=== PATIENT | female | born 1965 | race Two or more races ===

== ENCOUNTER 2024-10-09 10:05 | Outpatient (REF) | payer OTHER, SELFPAY ==
[2024-10-09 11:07] LABS: Hematocrit 41.7 % (37.0-47.0); Hemoglobin 13.8 g/dl (12.0-16.0); Mean Corpuscular HGB Conc 33.1 g/dl (31.0-35.0); Mean Corpuscular Hemoglobin 26.8 pg (27.0-33.0); Mean Corpuscular Volume 81.1 fL (80.0-98.0); Mean Platelet Volume 10.3 fL (9.4-12.3); Platelet Count 201 X10*3/uL (160-400); Red Blood Count 5.14 X10*6/uL (4.20-5.50); Red Cell Distribution Width 12.8 % (11.0-16.0); White Blood Count 3.1 X10*3/uL (4.8-10.8)
[2024-10-09 12:20] LABS: Folate 8.6 ng/mL (> or = 4.0); Vitamin B12 345 pg/mL (200-900)
[2024-10-09 12:34] LABS: TSH reflex Free T4 0.56 uIU/mL (0.32-4.0)
== END 2024-10-09 10:06 | disposition home or self-care (01) ==
LOC: HO.LAB 10:05
PROVIDERS: PCP Internal Medicine; Visit Provider Registered Nurse
DX: G31.84 Mild cognitive impairment of uncertain or unknown etiology (principal)
CPT/HCPCS: 36415; 82607; 82746; 84443; 85027

== ENCOUNTER 2025-07-17 12:54 | Outpatient (AMB) | payer OTHER, SELFPAY ==
--- NOTE | 2025-07-17 13:02 | MHC.OFFVIS ---
Vital Signs 07/17/25 13:11 Height 5 ft 5 in Weight 180 lb BMI 30.0 BP 152/80 H Blood Pressure Location Lt brachial Position Sitting Respiration 16 Pulse 77 Pulse Source Pulse Oximeter Pulse Oximetry (%) 97 Oxygen Delivery Method Room Air Intake Visit Reasons: Follow Up Selenium Plant Operator Required: Yes Selenium Plant Operator Services: Selenium Plant Operator Present Selenium Plant Operator Name: Anibal ID [id number] Information Interpreted: non-clinical & clinical Allergies morphine Allergy (Unknown, Verified 07/07/25 12:50) Unknown Medication List - Last Reconciled 07/21/25 by Karol Pal CNP acetaminophen 500 mg PO Q6H PRN atorvastatin 40 mg PO DAILY citalopram 20 mg PO DAILY glipizide ER 5 mg PO BID losartan 100 mg PO DAILY metformin 850 mg PO BID pantoprazole 40 mg PO DAILY propranolol 20 mg (2 x 10 mg) PO DAILY 30 days riboflavin (vitamin B2) 400 mg PO DAILY 90 days HPI Comments Details: Milagros is a 60-year-old female patient with a past medical history of depression, diabetes, GERD, hyperlipidemia, and headache. She was last seen in November of [address] Aguilera. Notes reflect that she has been improving at the time of her last visit. She was continued on propranolol 10 mg once daily for headaches/migraine prevention during that visit. According to the patient today, she has been taking propranolol 10mg daily for her headaches and has been utilizing tylenol for acute therapy though she has found that she has been Tylenol daily but she also uses it for back pain as well. Currently she is experiencing daily headaches. Her pain is right sided to the temporal retroorbital, and occipital areas and described as a strong pain associated with blurring vision to the right eye. She also has nausea and light sensitivity. She denies warning signs for a severe headache. She feels that the propranolol has helped some since starting it even though she has continue to have pain. Meds tried for headaches: Citaloprim Propranalol Gabapentin Topiramate Prior workup: Routine EEG at off in Oct 2024: [place] (per last office note) CT brain WO at [facility] in 2020: [place] (per last office note) MRI brain WWO at [facility] in February 2021: L lateral ventricle area lesion, ?demylination, milder on other side 07/2024 labs at [facility]: Sed rate 4 PFSH Medical History (Updated 07/21/25 @ 08:54 by Karol Pal CNP) MCI (mild cognitive impairment) Demyelinating changes in brain Brain lesion Depression with anxiety Diabetes mellitus Hypertension Migraine without aura Review of Systems Const All systems reviewed & are unremarkable except as noted in HPI and below Physical Exam Vital Signs: Last Vital Signs Pulse 77 07/17/25 13:11 Resp 16 07/17/25 13:11 BP 152/80 H 07/17/25 13:11 Pulse Ox 97 07/17/25 13:11 Oxygen Delivery Method Room Air 07/17/25 13:11 BMI result Body Mass Index 30.0 Const General: cooperative, healthy appearing, comfortable and no acute distress Nutritional Appearance: well nourished Orientation/consciousness: patient oriented x3 Limitations: no limitations HEENT Head: Yes normal to inspection and Yes normocephalic Eyes General: appearance normal, both eyes and all related structures Visual Fontaine: normal visual fontaine by confrontation Alignment and Position: alignment normal Periorbital: periorbital findings normal Eyelids: Yes eyelids normal Conjunctivae: conjunctivae normal Sclerae: sclerae normal Neuro General: patient oriented x3 and deep tendon reflexes 2+ bilaterally Cranial nerves: Yes CN's II-XII intact bilaterally and Yes Facial sensation intact/muscles of mastication intact Cognition (Neuro): normal cognition Gait exam (Neuro): Normal gait present Motor exam (neuro): 5/5 motor strength present throughout and no tremor noted Sensory Exam: double simultaneous stimulation for sensation normal Romberg Test: Negative Pupils: Normal pupillary reactivity/response: bilateral Psych Appearance: grossly normal Mental Status: mental status grossly normal Speech and movement: Normal speech and movement present and Clear speech present Affect: normal affect Attitude: cooperative Thought process: Normal thought process present Thought content: Normal thought content present Insight: Good insight present (Psych) Judgement: Good judgement present (Psych) Assessment & Plan Assessment & Plan (1) Migraine without aura: Code(s): G43.009 - Migraine without aura, not intractable, without status migrainosus Category: Medical Qualifiers: Status migrainosus presence: without status migrainosus Intractability: not intractable Qualified Code(s): G43.009 - Migraine without aura, not intractable, without status migrainosus Plan Milagros is a 60-year-old female patient with a past medical history of depression, diabetes, GERD, hyperlipidemia, and headache. While she has seen some improvement with low-dose propranolol, she continues to have daily headaches. She is tolerating the propranolol well and it seems reasonable to 1st utilize this agent at higher doses before moving on to other options. I will increase propranolol from 10 mg to 20 mg nightly and continue magnesium 500 mg daily which she has been using for supplementation. We will add riboflavin to her regimen and if she has no improvement with this, we could trial a once monthly anti CGRP injectable agent. -Increase propranolol from 10mg nightly to 20mg nightly -Continue magnesium 500mg daily -Add riboflavin 400mg daily supplementation -Next steps include trial of once monthly anti-CGRP injectable -Follow-up in 6 weeks Medications: New riboflavin (vitamin B2) 400 mg PO DAILY 90 tabs 3RF 90 days Changed From propranolol 20 mg PO DAILY To propranolol 20 mg (2 x 10 mg) PO DAILY 60 tabs 5RF 30 days Coding Level of Care Code Est Pt Level 4 (29926) Diagnoses Migraine without aura and without status migrainosus, not intractable G43.009 Status migrainosus presence: without status migrainosus Intractability: not intractable
[2025-07-17 13:11] VITALS: BP 152/80; PULSE 77; RESP 16; O2SAT 97
--- OUTSIDE RECORDS SUMMARY | 2025-07-17 14:47 | XMS_ITS | Encounter Summary ---
Author Organization [facility] Address [address] [place] [address] Care Team Providers Care Concierge Name Role Phone Peg Garcia MD Primary Care Provider [phone] Peg Garcia MD Primary Care Provider [phone]- [phone] Reason for Visit * Reason Onset Date Comments refill request 01/06/2021 Encounter Details Date Type Department Care Team Description 01/06/2021 Refill Internal Medicine - [address], [address] [place] [address] Peg Garcia MD [address] [place] [phone] refill request Social History Tobacco Use Types Packs/Day Years Used Date Smoking Tobacco: Former Smokeless Tobacco: Former Alcohol Use Standard Drinks/Week Comments No 0 (1 standard drink = 0.6 oz pur e alcohol) Sex Assigned at Date Recorded Not on file Job Start Date Occupation Industry Not on file Not on file Not on file COVID-19 Exposure Response Date Recorded In the last month, have you been in contact with someone who was confirmed or suspected to have Coronavirus / COVID-19? No / Unsure 12/29/2020 9:39 AM EDT documented as of this encounter Miscellaneous Notes * Telephone Encounter - Tessa Villalta L.P.N. - 01/06/2021 9:24 AM EDT Refill diclofenac Last refill 09/10/2020 #30 2 refills Last ov 12/29/2020 Lab Results Component Value Date NA 140 09/21/2020 K 4.6 09/21/2020 CO2 30 09/21/2020 CL 106 09/21/2020 BUN 15 09/21/2020 CREAT 0.81 09/21/2020 GLU 121 09/21/2020 ALB 4.0 09/21/2020 SGOT 19 09/21/2020 SGPT 35 09/21/2020 TBILI 0.4 09/21/2020 ALKPHOS 66 09/21/2020 TP 7.7 09/21/2020 CA 9.5 09/21/2020 GFR > 60 09/21/2020 * Telephone Encounter - Katlyn Ramos - 01/06/2021 9:07 AM EDT Ana 12/29/20 documented in this encounter Plan of Treatment Not on file documented as of this encounter Visit Diagnoses Not on filedocumented in this encounter Care Teams Concierge Relationship Specialty Start Date End Date Peg Garcia MD PCP - General Internal Medicine 07/01/19 06/20/21 Peg Garcia MD PCP - General Internal Medicine 06/21/21 documented as of this encounter
--- OUTSIDE RECORDS SUMMARY | 2025-07-17 14:47 | XMS_ITS | Encounter Summary ---
Author Organization [facility] Address [address] [place] [address] Care Team Providers Care Home Based Assistant Name Role Phone Peg Garcia MD Primary Care Provider [phone] Encounter Details Date Type Department Care Team ([facility] st Contact Info) Description 07/04/2025 Results Follow-Up Gastroenterology - [place] [address] [facility] [address] [place] [id number] Nesha Petersen PA [address] [place] [address] Social History Tobacco Use Types Packs/Day Years Used Date Smoking Tobacco: Former Smokeless Tobacco: Former Alcohol Use Standard Drinks/Week Comments No 0 (1 standard drink = 0.6 oz pur e alcohol) Interpersonal Safety Answer Date Record ed Physical Abuse Unrecognized value 01/15/2025 Verbal Abuse Unrecognized value 01/15/2025 Comments No Sex and Gender Information Value Date Recorded Sex Assigned at Female 12/02/2024 8:45 AM EDT Legal Sex Female 2:17 AM EST Gender Identity Female 12/02/2024 8:45 AM EDT Sexual Orientation Straight 12/02/2024 8: 45 AM EDT documented as of this encounter Progress Notes * JANETTE Craig - 07/04/2025 4:41 PM EDT Patient is not checking MyChart, please let her know that gastric emptying study showed very mild gastroparesis. Please advise her that she should eat more often, small portions throughout the day, avoid greasy, fatty foods. Eat more light. She can follow-up with me. TY documented in this encounter Plan of Treatment Upcoming Encounters Date Type Department Care Team (Late st Contact Info) Description 08/31/2025 2:30 PM EST Office Visit Internal Medicine - [place] [address] [place] [phone] Peg Garcia MD [address] [place] [address] 02/09/2026 2:00 PM EDT Office Visit Gastroenterology - [address] [facility] [address] [place] [address] Nesha Petersen PA [address] [place] [address] documented as of this encounter Visit Diagnoses Not on filedocumented in this encounter Care Teams Home Based Assistant Relationship Specialty Start Date End Date Peg Garcia MD [address] [place] [address] PCP - General Internal Medicine 07/01/19 documented as of this encounter
--- OUTSIDE RECORDS SUMMARY | 2025-07-17 14:47 | XMS_ITS | Encounter Summary ---
Author Organization [facility] Address [address] [place] [address] Care Team Providers Care Coil Spring Assembler Name Role Phone Rossana Washington MD Primary Care Provider Un available Peg Garcia MD Primary Care Provider [phone] Peg Garcia MD Primary Care Provider [phone] Encounter Details Date Type Department Care Team Description 03/11/2019 [facility] Only Adult [address] [address] Rossana Washington MD Social History Tobacco Use Types Packs/Day Years Used Date Smoking Tobacco: Former Smokeless Tobacco: Former Alcohol Use Standard Drinks/Week Comments No 0 (1 standard drink = 0.6 oz pur e alcohol) Sex Assigned at Date Recorded Not on file Job Start Date Occupation Industry Not on file Not on file Not on file documented as of this encounter Plan of Treatment Not on file documented as of this encounter Visit Diagnoses Not on filedocumented in this encounter Care Teams Coil Spring Assembler Relationship Specialty Start Date End Date Rossana Washington MD PCP - General Internal Medicine 01/24/16 Peg Garcia MD PCP - General Internal Medicine 07/01/19 06/20/21 Peg Garcia MD PCP - General Internal Medicine 06/21/21 documented as of this encounter
--- OUTSIDE RECORDS SUMMARY | 2025-07-17 14:47 | XMS_ITS | Encounter Summary ---
Author Organization [facility] Address [address] [place] [address] Care Team Providers Care Clerical Support Name Role Phone Peg Garcia MD Primary Care Provider [phone] Peg Garcia MD Primary Care Provider [phone] Reason for Visit * Reason Comments E-prescribe Rx Request Encounter Details Date Type Department Care Team Description 07/12/2020 Refill Adult Medicine [address] [address] Peg Garcia MD [address] [place] [phone] E-prescribe Rx Request Social History Tobacco Use Types Packs/Day Years Used Date Smoking Tobacco: Former Smokeless Tobacco: Former Alcohol Use Standard Drinks/Week Comments No 0 (1 standard drink = 0.6 oz pur e alcohol) Sex Assigned at Date Recorded Not on file Job Start Date Occupation Industry Not on file Not on file Not on file documented as of this encounter Miscellaneous Notes * Telephone Encounter - Hattie RingP.N. - 07/12/2020 1:58 PM EDT Lab Results Component Value Date ALB 3.9 05/11/2020 SGOT 17 05/11/2020 SGPT 29 05/11/2020 TBILI 0.6 05/11/2020 ALKPHOS 75 05/11/2020 TP 7.4 05/11/2020 * Telephone Encounter - Heather Beckwith - 07/12/2020 1:56 PM EDT - [id number] Refills - Citalopram - 1 refill Losartan - 5 refills documented in this encounter Plan of Treatment Not on file documented as of this encounter Visit Diagnoses Not on filedocumented in this encounter Care Teams Clerical Support Relationship Specialty Start Date End Date Peg Garcia MD PCP - General Internal Medicine 07/01/19 06/20/21 Peg Garcia MD PCP - General Internal Medicine 06/21/21 documented as of this encounter
--- OUTSIDE RECORDS SUMMARY | 2025-07-17 14:47 | XMS_ITS | Encounter Summary ---
Author Organization [facility] Address [address] [place] [address] Care Team Providers Care Potato Loader Name Role Phone Peg Garcia MD Primary Care Provider [phone] Encounter Details Date Type Department Care Team Description 07/02/2023 Orders Only Medical Records [address] [place] [address] Abstract, Provider Social History Tobacco Use Types Packs/Day Years [...] on file documented as of this encounter Procedures Procedure Name Priority Date/Time Associated Diagnosis Comments OUTSIDE MAMMO Routine 06/30/2023 documented in this encounter Results * OUTSIDE MAMMO (06/30/2023) Provider Abstract RADIOLOGY documented in this encounter Visit Diagnoses Not on filedocumented in this encounter Care Teams Potato Loader Relationship Specialty Start Date End Date Peg Garcia MD PCP - General Internal Medicine 06/21/21 documented as of this encounter
--- OUTSIDE RECORDS SUMMARY | 2025-07-17 14:47 | XMS_ITS | Encounter Summary ---
Author Organization [facility] Address [address] [place] [address] Care Team Providers Care Priming Powder Premix Blender Name Role Phone Peg Garcia MD Primary Care Provider [phone] Peg Garcia MD Primary Care Provider [phone] Reason for Visit * Reason Comments E-prescribe Rx Request Encounter Details Date Type Department Care Team Description 12/10/2020 Refill Adult Medicine [address] [address] Peg Garcia MD [address] [place] [phone] E-prescribe Rx Request Social History Tobacco [...] encounter Miscellaneous Notes * Telephone Encounter - Evgeny Cindy Hood - 12/10/2020 10:42 AM EDT SONIA 11/08/20 No visits with results within 1 Month(s) from this visit. Latest known visit with results is: Orders Only on 09/21/2020 Component Date Value ??? WHITE BLOOD COUNT 09/21/2020 3.4* ??? RED BLOOD COUNT 09/21/2020 5.2* ??? Hemoglobin 09/21/2020 13.9 ??? Hematocrit 09/21/2020 43.0 ??? MEAN CORPUSCULAR VOLUME 09/21/2020 82.9 ??? MEAN CORPUSCULAR HEMOGLO* 09/21/2020 26.8* ??? MEAN CORPUSCULAR HGB CONC 09/21/2020 32.3 ??? RED CELL DISTRIBUTION WI* 09/21/2020 13.4 ??? PLT COUNT 09/21/2020 216 ??? MEAN PLATELET VOLUME 09/21/2020 11.1* ??? NRBC % AUTO 09/21/2020 0.0 ??? NEUTROPHILS % 09/21/2020 42.3 ??? LYMPH % 09/21/2020 45.5 ??? MONO % 09/21/2020 6.8 ??? EOS % 09/21/2020 4.5 ??? BASO % 09/21/2020 0.6 ??? IMMATURE GRANULOCYTES % 09/21/2020 0.3 ??? NRBC # AUTO 09/21/2020 0.00 ??? NEUT # 09/21/2020 1.42* ??? LYMPH # 09/21/2020 1.53 ??? MONO # 09/21/2020 0.23 ??? EOS # 09/21/2020 0.15 ??? BASO # 09/21/2020 0.02 ??? IMMATURE GRANULOCYTES # 09/21/2020 0.01 ??? GLYCATED HEMOGLOBIN A1C 09/21/2020 6.9* ??? ESTIMATED AVERAGE GLUCOSE 09/21/2020 151 ??? Cholesterol 09/21/2020 235* ??? TRIGLYCERIDES 09/21/2020 279* ??? HDL CHOLESTEROL 09/21/2020 46 ??? LDL CALCULATED 09/21/2020 134* ??? TC-HDLC RATIO 09/21/2020 5.1* ??? CREATININE, RANDOM URINE 09/21/2020 103 ??? MICROALBUMIN, RANDOM 09/21/2020 10.1 ??? MICROALB/CRE RATIO RANDOM 09/21/2020 9.8 ??? GLUCOSE 09/21/2020 121* ??? Blood Urea Nitrogen 09/21/2020 15 ??? CREAT 09/21/2020 0.81 GLOMERULAR FILTRATION RA* 09/21/2020 > 60 ??? NA 09/21/2020 140 ??? K 09/21/2020 4.6 ??? CL 09/21/2020 106 ??? CARBON DIOXIDE (CO2) 09/21/2020 30 ??? ANION GAP 09/21/2020 4 ??? CALCIUM 09/21/2020 9.5 ??? TOTAL PROTEIN (TP) 09/21/2020 7.7 ??? Albumin 09/21/2020 4.0 ??? BILIRUBIN TOTAL 09/21/2020 0.4 ??? SGOT 09/21/2020 19 ??? SGPT 09/21/2020 35 ??? ALK PHOS 09/21/2020 66 documented in this encounter Plan of Treatment Not on file documented as of this encounter Visit Diagnoses Not on filedocumented in this encounter Care Teams Priming Powder Premix Blender Relationship Specialty Start Date End Date Peg Garcia MD PCP - General Internal Medicine 07/01/19 06/20/21 Peg Garcia MD PCP - General Internal Medicine 06/21/21 documented as of this encounter
--- OUTSIDE RECORDS SUMMARY | 2025-07-17 14:47 | XMS_ITS | Encounter Summary ---
Author Organization [facility] Address [address] [place] [address] Care Team Providers Care Type Cutter Name Role Phone Peg Garcia MD Primary Care Provider [phone] Peg Garcia MD Primary Care Provider [phone] Reason for Visit * Reason Onset Date Comments refill request 07/12/2020 Encounter Details Date Type Department Care Team Description 07/12/2020 Refill Internal Medicine - [address], [address] [place] [address] Peg Garcia MD [address] [place] [phone] refill request Social History Tobacco Use [...] encounter Miscellaneous Notes * Telephone Encounter - Peace Linda M.A. - 07/13/2020 1:26 PM EDT Lab Results Component Value Date NA 140 05/11/2020 K 4.4 05/11/2020 CO2 30 05/11/2020 CL 103 05/11/2020 BUN 10 05/11/2020 CREAT 0.60 05/11/2020 GLU 121 05/11/2020 ALB 3.9 05/11/2020 SGOT 17 05/11/2020 SGPT 29 05/11/2020 TBILI 0.6 05/11/2020 ALKPHOS 75 05/11/2020 TP 7.4 05/11/2020 CA 9.4 05/11/2020 GFR > 60 05/11/2020 * Telephone Encounter - Lorna Soteloue - 07/12/2020 4:16 PM EDT SONIA 05/11/2020 NOV 09/10/2020 90 day supply. documented in this encounter Plan of Treatment Not on file documented as of this encounter Visit Diagnoses Not on filedocumented in this encounter Care Teams Type Cutter Relationship Specialty Start Date End Date Peg Garcia MD PCP - General Internal Medicine 07/01/19 06/20/21 Peg Garcia MD PCP - General Internal Medicine 06/21/21 documented as of this encounter
--- OUTSIDE RECORDS SUMMARY | 2025-07-17 14:47 | XMS_ITS | Encounter Summary ---
Author Organization [facility] Address [address] [place] [address] Care Team Providers Care Life Insurance Sales Agent Name Role Phone Peg Garcia MD Primary Care Provider [phone] Peg Garcia MD Primary Care Provider [phone] Reason for Visit * Reason Comments E-prescribe Rx Request Encounter Details Date Type Department Care Team Description 02/09/2020 Refill Adult Medicine [address] [address] Peg Garcia MD [address] [place] [phone] E-prescribe Rx Request Social History Tobacco [...] Miscellaneous Notes * Telephone Encounter - Hattie Khan L.P.NPam - 02/12/2020 8:27 AM EDT Verified pt is still taking .. * Telephone Encounter - Tracy Colon - 02/11/2020 4:33 PM EDT Patient returning call please try again. [phone] * Telephone Encounter - Hattie RingP.N. - 02/11/2020 11:29 AM EDT LAST SCRIPT 08/06/2018 # 90 REFILL 1 PATIENT STILL TAKING ? Telephone Information: Work Phone Not on file. Message left for patient to return my call. * Telephone Encounter - Yamileth Davies - 02/11/2020 10:21 AM EDT Patient would like script to be: E-PRESCRIBED/FAXED TO PHARMACY WHEN WAS THE PATIENT'S LAST APPOINTMENT IN ADULT MEDICINE? 01/05/20 WHEN WAS THE LAST TIME THE PATIENT SAW THEIR PCP? Same as above Does patient have an upcoming appointment? No-unable to reach left voicemaill to call for appointment due to refill request. Appt due in April (THE MEDICATION REQUESTED IS ON THE MED LIST ABOVE) All of the medications requested were on the CURRENT MEDS list Did you check the Pharmacy information above?: YES Patient wants: 30 -day supply Is this a mail order prescription request ? NO If the refill is from a FAXED refill request what is the RX # listed on the fax? N/A Patients current insurance [place] is: [place] / Product Type: MED[place]ARE [id number] documented in this encounter Plan of Treatment Not on file documented as of this encounter Visit Diagnoses Not on filedocumented in this encounter Care Teams Life Insurance Sales Agent Relationship Specialty Start Date End Date Peg Garcia MD PCP - General Internal Medicine 07/01/19 06/20/21 Peg Garcia MD PCP - General Internal Medicine 06/21/21 documented as of this encounter
--- OUTSIDE RECORDS SUMMARY | 2025-07-17 14:47 | XMS_ITS | Encounter Summary ---
Author Organization [facility] Address [address] [place] [address] Care Team Providers Care Field Advisor Name Role Phone Peg Garcia MD Primary Care Provider [phone] Peg Garcia MD Primary Care Provider [phone] Reason for Visit * Reason Onset Date Comments refill request 07/13/2020 Encounter Details Date Type Department Care Team Description 07/13/2020 Refill Adult Medicine [address] [address] Peg Garcia MD [address] [place] [phone] refill request Social History Tobacco Use [...] * Telephone Encounter - Hattie RingP.N. - 07/15/2020 11:01 AM EDT Lab Results Component Value Date NA 140 05/11/2020 K 4.4 05/11/2020 CO2 30 05/11/2020 CL 103 05/11/2020 BUN 10 05/11/2020 CREAT 0.60 05/11/2020 GLU 121 05/11/2020 CA 9.4 05/11/2020 GFR > 60 05/11/2020 * Telephone Encounter - Allyn Resendez M.A. - 07/14/2020 4:14 PM EDT BP Readings from Last 5 Encounters: 05/11/20 (!) 150/73 11/04/19 (!) 150/90 10/23/19 130/86 07/15/19 118/68 07/03/19 (!) 152/84 * Telephone Encounter - Sera Duncan - 07/13/2020 11:36 AM EDT Patient would like script to be: E-PRESCRIBED/FAXED TO PHARMACY WHEN WAS THE PATIENT'S LAST APPOINTMENT IN ADULT MEDICINE? 05/11/20 WHEN WAS THE LAST TIME THE PATIENT SAW THEIR PCP? Same as above Does patient have an upcoming appointment? Yes 09/10/20 (THE MEDICATION REQUESTED IS ON THE MED LIST ABOVE) One or some of the medications requested were on the HISTORICAL MED list Did you check the Pharmacy information above?: YES Patient wants: 90 -day supply Is this a mail order prescription request ? NO If the refill is from a FAXED refill request what is the RX # listed on the fax? N/A Patients current insurance carrier is: Payor: [employer] C[employer]IANCE MCR / Plan: ONE CARE [facility] CARE ALLIANCE / Product Type: HMO [id number] documented in this encounter Plan of Treatment Not on file documented as of this encounter Visit Diagnoses Not on filedocumented in this encounter Care Teams Field Advisor Relationship Specialty Start Date End Date Peg Garcia MD PCP - General Internal Medicine 07/01/19 06/20/21 Peg Garcia MD PCP - General Internal Medicine 06/21/21 documented as of this encounter
--- OUTSIDE RECORDS SUMMARY | 2025-07-17 14:47 | XMS_ITS | Encounter Summary ---
Author Organization [facility] Address [address] [place] [address] Care Team Providers Care Study Lead Name Role Phone Peg Garcia MD Primary Care Provider [phone] Reason for Visit * Reason Onset Date Comments Faxed Refill 06/10/2024 Encounter Details Date Type Department Care Team Description 06/10/2024 Refill Internal Medicine - [address], [address] [place], [place] [phone] Peg Garcia MD [address] [place] [phone] Faxed Refill Social History Tobacco Use Types Packs/Day Years [...] encounter Miscellaneous Notes * Telephone Encounter - Kim Crane M.A. - 06/10/2024 10:25 AM EDT Lab Results Component Value Date NA 142 12/25/2023 K 4.7 12/25/2023 CO2 30 12/25/2023 CL 106 12/25/2023 BUN 10 12/25/2023 CREAT 0.67 12/25/2023 GLU 150 12/25/2023 CA 9.1 12/25/2023 GFR 101 12/25/2023 * Telephone Encounter - Nayely eVlasco - 06/10/2024 9:41 AM EDT REFILL LAST TIME SEEN: 05/13/2024 PCP: - NEXT TIME SEEN: 09/19/2024 documented in this encounter Plan of Treatment Not on file documented as of this encounter Visit Diagnoses Not on filedocumented in this encounter Care Teams Study Lead Relationship Specialty Start Date End Date Peg Garcia MD PCP - General Internal Medicine 06/21/21 documented as of this encounter
--- OUTSIDE RECORDS SUMMARY | 2025-07-17 14:47 | XMS_ITS | Encounter Summary ---
Author Organization [facility] Address [address] [place] [address] Care Team Providers Care Labor Commissioner Name Role Phone Rossana Washington MD Primary Care Provider Un available Peg Garcia MD Primary Care Provider [phone] Peg Garcia MD Primary Care Provider [phone] Reason for Visit * Reason Onset Date Comments Prior Authorization 04/03/2017 rosuvastatin (CRESTOR) 40 MG tablet Encounter Details Date Type Department Care Team Description 04/03/2017 Telephone Adult Medicine [address] [address] Rossana Washington MD Prior Authorization (rosuvastatin (CRESTOR) 40 MG tablet) Social History Tobacco Use Types Packs/Day Years Used Date Smoking Tobacco: Former Alcohol Use Standard Drinks/Week Comments No 0 (1 standard drink = 0.6 oz pur e alcohol) Sex Assigned at Date Recorded Not on file Job Start Date Occupation Industry Not on file Not on file Not on file documented as of this encounter Miscellaneous Notes * Telephone Encounter - Mercedes Mills M.A. - 04/09/2017 9:37 AM EDT Approved for crestor Telephone Information: Work Phone Not on file. Called and left message to call the office. Please tell patient her crestor is approved and close the message Thank you * Telephone Encounter - Beth Reyes M.A. - 04/04/2017 10:21 AM EDT Prior auth sent via covermymeds for crestor Tried atorvastatin 20mg caused abn lfts Dx hyperlipidemia E78.5 * Telephone Encounter - Мария Chris - 04/03/2017 1:55 PM EDT Pre Authorization for Medication-do not complete and send this encounter unless you have the fax from the pharmacy. Is this a Cover My Meds request: [place] of Medication rosuvastatin (CRESTOR) 40 MG tablet Dose of Medication rosuvastatin (CRESTOR) 40 MG tablet How does patient take this med? Take 1 tablet by mouth daily What Pharmacy did the fax come from: [facility] fax #: [phone] [employer] Party Information from fax: What Prescription Plan does the patient have? unknown BIN/PCN if applicable: Cardholder ID:[id number] Person Code: Relationship Code: Help desk phone: [phone] documented in this encounter Plan of Treatment Not on file documented as of this encounter Visit Diagnoses Not on filedocumented in this encounter Care Teams Labor Commissioner Relationship Specialty Start Date End Date Rossana Washington MD PCP - General Internal Medicine 01/24/16 Peg Garcia MD PCP - General Internal Medicine 07/01/19 06/20/21 Peg Garcia MD PCP - General Internal Medicine 06/21/21 documented as of this encounter
--- OUTSIDE RECORDS SUMMARY | 2025-07-17 14:47 | XMS_ITS | Encounter Summary ---
Author Organization [facility] [place] Address [address] [place] [address] Care Team Providers Care Painter Chassis Name Role Phone Rossana Washington MD Primary Care Provider Un available Peg Garcia MD Primary Care Provider [phone] Peg Garcia MD Primary Care Provider [phone] Encounter Details Date Type Department Care Team Description 02/23/2019 Release of Information Medical Records [address] [place] [id number] Abstract, Provider Social History Tobacco Use Types [...] on filedocumented in this encounter Care Teams Painter Chassis Relationship Specialty Start Date End Date Rossana Washington MD PCP - General Internal Medicine 01/24/16 Peg Garcia MD PCP - General Internal Medicine 07/01/19 06/20/21 Peg Garcia MD PCP - General Internal Medicine 06/21/21 documented as of this encounter
--- OUTSIDE RECORDS SUMMARY | 2025-07-17 14:47 | XMS_ITS | Encounter Summary ---
Author Organization [facility] Address [address] [place] [address] Care Team Providers Care Glass Ribbon Machine Operator Assistant Name Role Phone Peg Garcia MD Primary Care Provider [phone]- [phone] Peg Garcia MD Primary Care Provider [phone] Reason for Visit * Reason Comments E-prescribe Rx Request Encounter Details Date Type Department Care Team Description 01/07/2021 Refill Adult Medicine [address] [address] Peg Garcia MD [address] [place] [phone] E-prescribe Rx Request Social History Tobacco [...] Miscellaneous Notes * Telephone Encounter - Evgeny Morataya - 01/10/2021 9:43 AM EDT SONIA 12/29/20 BP Readings from Last 3 Encounters: 12/29/20 (!) 140/60 11/08/20 130/70 10/06/20 138/66 * Telephone Encounter - Tracy Isaiah - 01/07/2021 4:17 PM EDT Patient would like script to be: E-PRESCRIBED/FAXED TO PHARMACY WHEN WAS THE PATIENT'S LAST APPOINTMENT IN ADULT MEDICINE? 12/29/20 WHEN WAS THE LAST TIME THE PATIENT SAW THEIR PCP? same Does patient have an upcoming appointment? No-[facility] due to refill request. (THE MEDICATION REQUESTED IS ON THE MED [...] N/A Patients current insurance carrier is: Payor: [employer] [facility] MCR / Plan: [facility] / Product Type: HMO [id number] documented in this encounter Plan of Treatment Not on file documented as of this encounter Visit Diagnoses Not on filedocumented in this encounter Care Teams Glass Ribbon Machine Operator Assistant Relationship Specialty Start Date End Date Peg Garcia MD PCP - General Internal Medicine 07/01/19 06/20/21 Peg Garcia MD PCP - General Internal Medicine 06/21/21 documented as of this encounter
--- OUTSIDE RECORDS SUMMARY | 2025-07-17 14:47 | XMS_ITS | Encounter Summary ---
Author Organization [facility] Address [address] [place] [address] Care Team Providers Care Tool Lathe Operator Name Role Phone Peg Garcia MD Primary Care Provider [phone] Encounter Details Date Type Department Care Team Description 12/21/2023 Orders Only Internal Medicine - [address], [address] [place], [place] [phone] Peg Garcia MD [address] [place] [phone] Type 2 diabetes mellitus with diabetic neuropathy, without long-term current use of insulin (HCC); Essential hypertension; Hyperlipidemia, unspecified hyperlipidemia type; Osteoarthritis of left hip, unspecified osteoarthritis type; Chronic left-sided low back pain with left-sided sciatica Social History Tobacco Use Types Packs/Day Years [...] Procedure Name Priority Date/Time Associated Diagnosis Comments CHG RADEX SPINE LUMBOSACRAL MINIMUM 4 VIEWS Routine 12/20/2023 Type 2 diabetes mellitus with diabetic neuropathy, without long-term current use of insulin (HCC) Essential hypertension Hyperlipidemia, unspecified hyperlipidemia type Osteoarthritis of left hip, unspecified osteoarthritis type Chronic left-sided low back pain with left-sided sciatica documented in this encounter Results * X-RAY EXAM OF LOWER SPINE WITH OBLIQUES (12/20/2023) Peg Garcia MD RADIOLOGY documented in this encounter Visit Diagnoses Diagnosis Type 2 diabetes mellitus with diabetic neuropathy, without long-term current use of insulin (HCC) Essential hypertension Unspecified essential hypertension Hyperlipidemia, unspecified hyperlipidemia type Osteoarthritis of left hip, unspecified osteoarthritis type Chronic left-sided low back pain with left-sided sciatica documented in this encounter Care Teams Tool Lathe Operator Relationship Specialty Start Date End Date Peg Garcia MD PCP - General Internal Medicine 06/21/21 documented as of this encounter
--- OUTSIDE RECORDS SUMMARY | 2025-07-17 14:47 | XMS_ITS | Encounter Summary ---
Author Organization [facility] Address [address] [place] [address] Care Team Providers Care Paste Mixing Supervisor Name Role Phone Peg Garcia MD Primary Care Provider [phone] Reason for Visit * Reason Onset Date Comments refill request 02/05/2024 Encounter Details Date Type Department Care Team Description 02/05/2024 Refill Internal Medicine - [address], [address] [place], [place] [phone] Peg Garcia MD [address] [place] [phone] refill request Social History Tobacco Use [...] Telephone Encounter - Kim Crane M.A. - 02/05/2024 1:27 PM EDT LV 3.27.24 Lab Results Component Value Date NA 142 12/25/2023 K 4.7 12/25/2023 CO2 30 12/25/2023 CL 106 12/25/2023 BUN 10 12/25/2023 CREAT 0.67 12/25/2023 GLU 150 12/25/2023 CA 9.1 12/25/2023 GFR 101 12/25/2023 * Telephone Encounter - Gerri Celis - 02/05/2024 9:35 AM EDT Patient would like script to be: E-PRESCRIBED/FAXED TO PHARMACY WHEN WAS THE PATIENT'S LAST APPOINTMENT WITH THE PRESCRIBING PROVIDER? [phone] Does patient have an upcoming appointment? Yes 05-27-2024 (THE MEDICATION REQUESTED IS ON THE MED LIST ABOVE) Did you check the Pharmacy information above?: YES Patient wants: 90 -day supply Is this a mail order prescription request ? NO Patients current insurance carrier is: Payor: [employer] [facility] M[facility] / Plan: [facility] / Product Type: HMO [id number] documented in this encounter Plan of Treatment Not on file documented as of this encounter Visit Diagnoses Diagnosis Type 2 diabetes mellitus with diabetic neuropathy, without long-term current use of insulin (HCC) Essential hypertension Unspecified essential hypertension Hyperlipidemia, unspecified hyperlipidemia type Obesity (BMI 30.0-34.9) Obesity, unspecified Left elbow pain Pain in joint, upper arm Frequent urination Urinary frequency Gastroesophageal reflux disease without esophagitis Esophageal reflux documented in this encounter Care Teams Paste Mixing Supervisor Relationship Specialty Start Date End Date Peg Garcia MD PCP - General Internal Medicine 06/21/21 documented as of this encounter
--- OUTSIDE RECORDS SUMMARY | 2025-07-17 14:47 | XMS_ITS | Encounter Summary ---
Author Organization [facility] Address [address] [place] [address] Care Team Providers Care Qlikview Developer Name Role Phone Rossana Washington MD Primary Care Provider Un available Peg Garcia MD Primary Care Provider [phone] Peg Garcia MD Primary Care Provider [phone] Reason for Visit * Reason Comments E-prescribe Rx Request Encounter Details Date Type Department Care Team Description 05/04/2019 Refill Adult Medicine [address] [address] Mayelin Ca PA-C [address] [place] [phone] E-prescribe Rx Request Social History Tobacco Use [...] encounter Miscellaneous Notes * Telephone Encounter - Mayelin Ca PA-C - 05/05/2019 7:04 PM EDT Ok to fill. Latoya Hyman * Telephone Encounter - Tanvi Cochran M.A. - 05/05/2019 4:42 PM EDT Lab Results Component Value Date NA 141 08/27/2018 K 4.2 08/27/2018 CO2 30.1 08/27/2018 CL 100 08/27/2018 BUN 11 08/27/2018 CREAT 0.7 08/27/2018 GLU 133 06/27/2017 CA 9.8 08/27/2018 GFR > 60 08/27/2018 * Telephone Encounter - Taylor Davenport - 05/05/2019 3:18 PM EDT Patient would like script to be: E-PRESCRIBED/FAXED TO PHARMACY WHEN WAS THE PATIENT'S LAST APPOINTMENT IN ADULT MEDICINE? [id number] WHEN WAS THE LAST TIME THE PATIENT SAW THEIR PCP? [id number] Does patient have an upcoming appointment? Yes [id number] (THE MEDICATION REQUESTED IS ON THE MED [...] / Plan[place] / Product Type: MEDICARE [id number] documented in this encounter Plan of Treatment Not on file documented as of this encounter Visit Diagnoses Not on filedocumented in this encounter Care Teams Qlikview Developer Relationship Specialty Start Date End Date Rossana Washington MD PCP - General Internal Medicine 01/24/16 Peg Garcia MD PCP - General Internal Medicine 07/01/19 06/20/21 Peg Garcia MD PCP - General Internal Medicine 06/21/21 documented as of this encounter
--- OUTSIDE RECORDS SUMMARY | 2025-07-17 14:47 | XMS_ITS | Encounter Summary ---
Author Organization [facility] Address [address] [place] [address] Care Team Providers Care Quickbooks Bookkeeper Name Role Phone Rossana Washington MD Primary Care Provider Un available Peg Garcia MD Primary Care Provider [phone] Peg Garcia MD Primary Care Provider [phone]- [phone] Reason for Visit * Reason Comments E-prescribe Rx Request Encounter Details Date Type Department Care Team Description 04/09/2018 Refill Adult Medicine [address] [address] Fina Kim PA-C E-prescribe Rx Request Social History Tobacco Use Types Packs/Day Years Used Date Smoking Tobacco: Former Smokeless Tobacco: Never Alcohol Use Standard Drinks/Week Comments No 0 (1 standard drink = 0.6 oz pur e alcohol) Sex Assigned at Date Recorded Not on file Job Start Date Occupation Industry Not on file Not on file Not on file documented as of this encounter Miscellaneous Notes * Telephone Encounter - Patricia Rader C.M.A. - 04/09/2018 4:31 PM EDT Fina patient requesting 90 day supply. Patient seen today * Telephone Encounter - Fariha Hyde - 04/09/2018 4:18 PM EDT Patient would like script to be: E-PRESCRIBED/FAXED TO PHARMACY WHEN WAS THE PATIENT'S LAST APPOINTMENT IN ADULT MEDICINE? 04/01/18 WHEN WAS THE LAST TIME THE PATIENT SAW THEIR PCP? Same as above Does patient have an upcoming appointment? Yes 04/09/18 (THE MEDICATION REQUESTED IS ON THE MED [...] N/A Patients current insurance carrier is: Payor: [employer] / Plan: [employer] / Product Type: MEDICARE [id number] documented in this encounter Plan of Treatment Not on file documented as of this encounter Visit Diagnoses Not on filedocumented in this encounter Care Teams Quickbooks Bookkeeper Relationship Specialty Start Date End Date Rossana Washington MD PCP - General Internal Medicine 01/24/16 Peg Garcia MD PCP - General Internal Medicine 07/01/19 06/20/21 Peg Garcia MD PCP - General Internal Medicine 06/21/21 documented as of this encounter
--- OUTSIDE RECORDS SUMMARY | 2025-07-17 14:47 | XMS_ITS | Encounter Summary ---
Author Organization [facility] Address [address] [place] [address] Care Team Providers Care Camp Recreation Specialist Name Role Phone Rossana Washington MD Primary Care Provider Un available Peg Garcia MD Primary Care Provider [phone] Peg Garcia MD Primary Care Provider [phone] Encounter Details Date Type Department Care Team Description 03/18/2019 [facility] Medical Records [address] [place] [id number] Abstract, Provider Social History Tobacco Use Types [...] on filedocumented in this encounter Care Teams Camp Recreation Specialist Relationship Specialty Start Date End Date Rossana Washington MD PCP - General Internal Medicine 01/24/16 Peg Garcia MD PCP - General Internal Medicine 07/01/19 06/20/21 Peg Garcia MD PCP - General Internal Medicine 06/21/21 documented as of this encounter
--- OUTSIDE RECORDS SUMMARY | 2025-07-17 14:48 | XMS_ITS | Encounter Summary ---
Author Organization [facility] Address [address] [place] [address] Care Team Providers Care Combination Machine Tool Setter Name Role Phone Rossana Washington MD Primary Care Provider Un available Peg Garcia MD Primary Care Provider [phone] Peg Garcia MD Primary Care Provider [phone] Encounter Details Date Type Department Care Team Description 04/02/2017 Orders Only Adult Medicine [address] [address] Rossana Washington MD Social History Tobacco Use [...] on filedocumented in this encounter Care Teams Combination Machine Tool Setter Relationship Specialty Start Date End Date Rossana Washington MD PCP - General Internal Medicine 01/24/16 Peg Garcia MD PCP - General Internal Medicine 07/01/19 06/20/21 Peg Garcia MD PCP - General Internal Medicine 06/21/21 documented as of this encounter
--- OUTSIDE RECORDS SUMMARY | 2025-07-17 14:48 | XMS_ITS | Encounter Summary ---
Author [facility] Address [address] [place] [address] Care Team Providers Care Manager Intensive Care Unit Name Role Phone Rossana Washington MD Primary Care Provider Un available Peg Garcia MD Primary Care Provider [phone] Peg Garcia MD Primary Care Provider [phone] Reason for Visit * Reason Onset Date Comments REFERRAL 07/14/2016 Encounter Details Date Type Department Care Team Description 07/14/2016 Telephone Podiatry - [address] [address] John Zuñiga, DPEduardo REFERRAL Social History Tobacco Use Types Packs/Day Years Used Date Smoking Tobacco: Former Alcohol Use Standard Drinks/Week Comments No 0 (1 standard drink = 0.6 oz pur e alcohol) Sex Assigned at Date Recorded Not on file Job Start Date Occupation Industry Not on file Not on file Not on file documented as of this encounter Miscellaneous Notes * Telephone Encounter - Citlalli Osborn M.A. - 07/14/2016 12:48 PM EDT Pt scheduled for 07/17/2016 @ 8am, please inform the patient and add notes. * Telephone Encounter - Barbara Haq - 07/14/2016 10:06 AM EDT Pt was referred to Podiatry re: Problem visit for abscess of right toe in DM Priority: Today/Tomorrow Payor: Not third-alliance party related Please advise on booking Thank you! documented in this encounter Plan of Treatment Not on file documented as of this encounter Visit Diagnoses Not on filedocumented in this encounter Care Teams Manager Intensive Care Unit Relationship Specialty Start Date End Date Rossana Washington MD PCP - General Internal Medicine 01/24/16 Peg Garcia MD PCP - General Internal Medicine 07/01/19 06/20/21 Peg Garcia MD PCP - General Internal Medicine 06/21/21 documented as of this encounter
--- OUTSIDE RECORDS SUMMARY | 2025-07-17 14:48 | XMS_ITS | Encounter Summary ---
[facility] Address [address] [place] [address] Care Team Providers Care Quill Reamer Name Role Phone Peg Garcia MD Primary Care Provider [phone] Reason for Visit * Reason Comments E-prescribe Rx Request Encounter Details Date Type Department Care Team Description 04/29/2022 Refill Internal Medicine - [address], [address] [place], [place] [phone] Peg Gacria MD [address] [place] [phone] E-prescribe Rx Request Social History Tobacco [...] encounter Miscellaneous Notes * Telephone Encounter - Cindy Perea - 05/01/2022 2:46 PM EDT BP Readings from Last 3 Encounters: 10/19/21 (!) 148/75 08/25/21 (!) 144/76 12/29/20 (!) 140/60 * Telephone Encounter - Elo Borges - 05/01/2022 2:38 PM EDT Ana-10/19/2021 Nov-09/20/2022 documented in this encounter Plan of Treatment Not on file documented as of this encounter Visit Diagnoses Not on filedocumented in this encounter Care Teams Quill Reamer Relationship Specialty Start Date End Date Peg Garcia MD PCP - General Internal Medicine 06/21/21 documented as of this encounter
--- OUTSIDE RECORDS SUMMARY | 2025-07-17 14:48 | XMS_ITS | Encounter Summary ---
Author Organization [facility] Address [address] [place] [address] Care Team Providers Care Seo Associate Name Role Phone Peg Garcia MD Primary Care Provider [phone] Encounter Details Date Type Department Care Team Description 06/19/2022 Refill Internal Medicine - [address], [address] [place], [place] [phone] Peg Garcia MD [address] [place] [phone] Social History Tobacco Use Types Packs/Day Years [...] on filedocumented in this encounter Care Teams Seo Associate Relationship Specialty Start Date End Date Peg Garcia MD PCP - General Internal Medicine 06/21/21 documented as of this encounter
--- OUTSIDE RECORDS SUMMARY | 2025-07-17 14:48 | XMS_ITS | Clinical Summary ---
Author Organization [address] Address [address] [place] [address] Phone Care Team Providers Care Survey Field Technician Name Role Phone Christiano Garcia MD Primary Care Provider [phone] Allergies Active Allergy Reactions Criticality Noted Date Comments Morphine Rash,Headache 02/11/2016 Medications blood-glucose meter kit 2 (two) times a day. 04/07/20 22 Active citalopram (CeleXA) 40 mg tablet Take 1 tablet (40 mg total) by mouth 1 (one) time each day. 11/01/19 23 Active fluticasone propionate (Flonase Allergy Relief) 50 mcg/actuation nasal spray 1 sprays, Nares, Both, Daily, in each nostril; Bahraini, # 1 each, 3 Refills, Maintenance, 01/06/16 9:01:37, 1 sprays Nares, Both Daily,Instr:in each nostril; Bahraini 01/06/20 16 Active tiZANidine (ZANAFLEX) 4 mg tablet Take 1 tablet (4 mg total) by mouth every 6 (six) hours if needed for muscle spasms. 30 tablet 3 09/22/20 24 Active Additional Information Patient not taking.Reported on 07/09/2025 blood sugar diagnostic (FreeStyle Lite Strips) test strip 100 each by Other route 2 (two) times a day. 100 each 2 11/06/19 25 Active freestyle (FreeStyle Lancets) 28 gauge lancets by Other route 2 (two) times a day. 90 each 3 11/11/19 25 Active melatonin-lemo n balm leaf extr 10-1 mg tablet Take 1 tablet by mouth. Active tiZANidine (ZANAFLEX) 4 mg tablet Take 1 tablet (4 mg total) by mouth 3 (three) times a day if needed for muscle spasms. Active senna-docusate (PERICOLACE) 8.6-50 mg per tablet Take 1 tablet by mouth 1 (one) time each day. 30 each 11 12/16/19 25 026 Active cholecalcifero l (Vitamin D3) 50 mcg (2,000 unit) tablet Take 1 tablet (2,000 Units total) by mouth 1 (one) time each day. 90 tablet 2 12/25/19 25 Active cholecalcifero l (Vitamin D3) 50 mcg (2,000 unit) tablet Take 1 tablet (2,000 Units total) by mouth 1 (one) time each day. 90 tablet 2 12/26/19 25 Active Additional Information Patient not taking.Reported on 07/09/2025 metFORMIN (GLUCOPHAGE) 850 mg tablet Take 1 tablet (850 mg total) by mouth 2 (two) times a day with meals. 180 each 3 12/26/19 25 Active glipiZIDE (GLUCOTROL XL) 5 mg 24 hr tablet TAKE 1 TABLET BY MOUTH TWICE DAILY 180 tablet 1 03/02/20 25 Active Additional Information Patient not taking.Reported on 07/09/2025 gabapentin (NEURONTIN) 300 mg capsule Take 1 capsule (300 mg total) by mouth. Active meclizine (ANTIVERT) 25 mg tablet Take 1 tablet (25 mg total) by mouth 2 (two) times a day if needed for dizziness. 30 tablet 04/27/20 25 Active Additional Information Patient not taking.Reported on 07/09/2025 metFORMIN (GLUCOPHAGE) 1,000 mg tablet Take 1 tablet (1,000 mg total) by mouth 2 (two) times a day with meals. 180 tablet 2 06/07/20 25 Active pantoprazole (PROTONIX) 40 mg EC tablet TAKE 1 TABLET(40 MG) BY MOUTH 1 TIME EACH DAY. DO NOT CRUSH, CHEW, OR SPLIT 30 tablet 3 06/09/20 25 Active Additional Information Patient not taking.Reported on 07/09/2025 acetaminophen (TYLENOL) 500 mg tablet TAKE 1 TABLET BY MOUTH EVERY 6 HOURS NEEDED FOR PAIN 60 tablet 1 06/08/20 25 Active losartan (COZAAR) 100 mg tablet TAKE 1 TABLET BY MOUTH DAILY 90 tablet 2 06/12/20 25 Active valACYclovir (VALTREX) 1 gram tablet TAKE 2 TABLETS BY MOUTH AT ONSET OF SYMPTOMS AND 12 HOUR LATER 02/18/20 25 Active triamcinolone (KENALOG) 0.1 % lotion APPLY TOPICALLY TO SCALP TWICE DAILY NEEDED FOR FLARES AND DECREASE SYMPTOMS IMPROVE 06/08/20 25 Active traZODone (DESYREL) 50 mg tablet Take 1 tablet (50 mg total) by mouth. at bedtime 04/02/20 25 Active topiramate (TOPAMAX) 25 mg tablet 09/16/20 24 Active SUMAtriptan (Imitrex) 25 mg tablet Take 1 tablet (25 mg total) by mouth. 06/07/20 15 Active propranoloL (INDERAL) 10 mg tablet Take 1 tablet (10 mg total) by mouth 1 (one) time each day. 02/18/20 25 Active pregabalin (LYRICA) 150 mg capsule TAKE 1 CAPSULE BY MOUTH EVERY DAY AT BEDTIME FOR PAIN 04/24/20 25 Active pravastatin (PRAVACHOL) 80 mg tablet Take 1 tablet (80 mg total) by mouth. 01/06/20 16 Active oxyCODONE (ROXICODONE) 5 mg immediate release tablet TAKE 1 TABLET BY MOUTH EVERY 4 TO 6 HOURS FOR 7 DAYS DIRECTED 12/18/19 25 Active omeprazole (PriLOSEC) [address] capsule Take 1 capsule (20 mg total) by mouth 2 (two) times a day. 02/05/20 24 Active naproxen (NAPROSYN) 500 mg tablet Take 1 tablet (500 mg total) by mouth 2 (two) times a day with meals. 10/05/19 24 Active nabumetone (RELAFEN) 500 mg tablet Take 1 tablet (500 mg total) by mouth. 11/22/19 16 Active lisinopril-hyd roCHLOROthiazi de (PRINZIDE,ZEST ORETIC) 20-12.5 mg per tablet Take 1 tablet by mouth. 01/06/20 16 Active ketoconazole (NIZORAL) 2 % shampoo APPLY TOPICALLY TO THE SCALP 2 TIMES EVERY WEEK. LEAVE ON 5 MINUTES THEN WASH OFF 06/08/20 25 Active fluocinonide (LIDEX) 0.05 % cream apply cream topically twice daily 03/31/20 25 Active cyclobenzaprin e (FLEXERIL) 10 mg tablet Take 1 tablet (10 mg total) by mouth 2 (two) times a day. for 14 days 12/17/19 25 Active clotrimazole-b etamethasone (LOTRISONE) 1-0.05 % cream APPLY SMALL AMOUNT TOPICALLY TWICE DAILY 04/03/20 25 Active cetirizine (ZyrTEC) 10 mg tablet Take 1 tablet (10 mg total) by mouth 1 (one) time each day. 03/07/20 24 Active ammonium lactate (AMLACTIN) 12 % cream 06/08/20 25 Active amLODIPine (NORVASC) 5 mg tablet Take 1 tablet (5 mg total) by mouth 1 (one) time each day. 05/01/20 22 Active atorvastatin (LIPITOR) 40 mg tablet TAKE 1 TABLET(40 MG) BY MOUTH 1 TIME EACH DAY 90 tablet 1 07/16/20 25 Active atorvastatin (LIPITOR) 40 mg tablet Take 1 tablet (40 mg total) by mouth 1 (one) time each day. 90 each 1 01/16/20 25 025 Discontinued Active Problems Problem Noted Date Diagnosed Date Acquired trigger finger 07/03/2025 Chronic anemia 07/03/2025 GERD (gastroesophageal reflux disease) Heartburn symptom 07/03/2025 History of cholecystectomy 07/03/2025 History of hysterectomy 07/03/2025 Overview (07/03/2025): Dr Galindo- PROCEDURE DATE: 11/21/2010 PREOPERATIVE DIAGNOSES: Fibroid uterus, dysmenorrhea, menometrorrhagia, effusions. POSTOPERATIVE DIAGNOSES: Fibroid uterus, dysmenorrhea, menometrorrhagia, effusions. OPERATION PERFORMED: Supracervical abdominal hysterectomy, bilateral salpingo-oophorectomy, lysis of adhesions and revision of abdominal scar. REGISTERED TRAVEL NURSE: ____ and Geyl Diamond D.O. ANESTHETIC: General. COMPLICATIONS: None. Internal hemorrhoids 07/03/2025 Overview (07/03/2025): Per colonscopy 02/2013 Positive PPD 07/03/2025 Postprandial epigastric pain 07/03/2025 Type 2 diabetes, HbA1c goal < 7% ([facility] V24, [facility] [place]/[facility] V28) 07/03/2025 Trochanteric bursitis of left hip 07/03/2025 Spinal stenosis, lumbar riccardo on, with neurogenic claudication 12/03/2024 Chronic gastritis 08/11/2024 Shoulder pain, right 08/25/2021 Obesity (BMI 30.0-34.9) 02/26/2018 Sickle cell anemia ([facility] V24, [facility] V28) Type 2 diabetes mellitus wit h diabetic neuropathy, without long-term current use of insulin ([facility] V24, [facility] V28) 08/08/2016 Hyperlipidemia 02/14/2016 Depression 02/11/2016 Overview (08/11/2024): F/u [address] Insomnia 02/11/2016 HTN (hypertension) 02/11/2016 Low back pain radiating to left leg 02/11/2016 Encounters Date Type Department Care Team Description 07/09/2025 2:20 PM EDT Office Visit Gastroenterology - [place] [address] [phone] Nesha Petersen PA Gastroesophageal reflux disease, unspecified whether esophagitis present (Primary Dx); Diabetic gastroparesis ([facility] V24, [facility] V28) 07/04/2025 Results Follow-Up Gastroenterology [address] [phone] Nesha Petersen PA 06/16/2025 7:58 AM EDT - 06/16/2025 11:59 PM EDT Hospital Encounter [facility] Nuclear Medicine [address] [place] [phone] Hepatitis B infection without delta agent without hepatic coma, unspecified chronicity; Gastroesophageal reflux disease, unspecified whether esophagitis present; History of throat cancer Discharge Disposition: Home or Self Care 04/27/2025 1:30 PM EDT Office Visit Internal Medicine - [place] [address] [phone] Christiano Garcia MD Type 2 diabetes mellitus with diabetic neuropathy, without long-term current use of insulin ([facility] V24, [facility] V28) (Primary Dx); Mixed hyperlipidemia; Primary hypertension; Obesity (BMI 30.0-34.9) from Last 3 Months Immunizations Immunization Administration Dates Next Due Hep A, Unspecified 07/31/2013 Hep B, Unspecified 07/31/2013 Influenza Quadravalent, MDCK , 0.5ml, with preservative (Flucelvax) 6mo and older 06/27/2017 Influenza Quadrivalent, 0.5m l, preservative free (Fluarix; FluLaval; Fluzone) ages 6mo and older (Afluria) 3yo and older 07/12/2018 Influenza trivalent, with pr eservative (Fluzone; Afluria) 6mo and older 07/06/2015,08/19/2014,10/14/2013 Surgical History Surgery Date Site/Laterality Comments HYSTERECTOMY 2010 PROCEDURE: HISTORICAL TOTAL HYSTERECTOMY WITH BSO; COMMENT: leiomyoma HERNIA REPAIR 2010 PROCEDURE: HISTORICAL HERNIA REPAIR/UMB CHOLECYSTECTOMY 1993 PROCEDURE: HISTORICAL CHOLECYSTECTOMY OTHER SURGICAL HISTORY PROCEDURE: ---- OTHER ----; COMMENT: VOCAL CORD TUMOR RESECTION OTHER SURGICAL HISTORY Right PROCEDURE: ---- OTHER ----; COMMENT: trigger finger release UPPER GASTROINTESTINAL ENDOSCOPY 10/29/14 PROCEDURE: UPPER GI ENDOSCOPY/EXAM COLONOSCOPY 03/11/13 PROCEDURE: HISTORICAL COLONOSCOPY SECTION, LOW TRANSVERSE x 3 Medical History Medical History Date Comments Depression 02/11/2016 DX:Depression Insomnia 02/11/2016 DX:Insomnia HTN (hypertension) 02/11/2016 DX:HTN (hyper tension) Low back pain radiating to left leg 02/11/2016 DX:Low back pain radiating to left leg Hyperlipidemia 02/14/2016 DX:Hyperlipidemi a History of diverticulitis 03/29/2016 DX:His tory of diverticulitis H/O herpes simplex type 2 infection 03/29/2016 DX:H/O herpes simplex type 2 infection Type 2 diabetes mellitus wit h diabetic neuropathy, without long-term current use of insulin ([facility] V24, [facility] V28) 08/08/2016 DX:Type 2 diabetes mellitus with diabetic neuropathy, without long-term current use of insulin ([facility]) Sickle cell anemia ([facility] V24, [facility] V28) 04/06/2017 DX:Sickle cell anemia (HCC) Cancer ([facility] V24, [facility] V28) Throat cancer ([facility] V24, [facility] V28) Family History Relation Name Status Comments Daughter Alive Father (Age 87) stomach ca Mother UTERINE CA Son Alive Social History Tobacco Use Types Packs/Day Years Used Date Smoking Tobacco: Former Smokeless Tobacco: Former Tobacco Cessation:Counseling Given: Not Answered Alcohol Use Standard Drinks/Week Comments No 0 [...] Orientation Straight 12/02/2024 8: 45 AM EDT Obstetrics History Last Filed Vital Signs Vital Sign Reading Time Taken Comments Blood Pressure 120/70 07/09/2025 2:21 PM EDT Pulse 67 07/09/2025 2:21 PM EDT Temperature 36.4 C (97.5 F) 04/27/2025 1:40 PM EDT Respiratory Rate 20 04/27/2025 1:40 PM EDT Oxygen Saturation 97% 07/09/2025 2:21 PM EDT Inhaled Oxygen Concentration - - Weight 84.7 kg (186 lb 12.8 oz) 07/09/2025 2:21 PM EDT Height 165.1 cm (5' 5 ) 07/09/2025 2:21 PM EDT Body Mass Index 31.09 07/09/2025 2:21 PM EDT Plan of Treatment Upcoming Encounters Date Type Department Care Team (Late st Contact Info) Description 08/31/2025 2:30 PM EST Office Visit Internal Medicine - [place] [address] [facility] [address] [place] [phone] Christiano Garcia MD [address] [facility] [address] [place] [phone] 02/09/2026 2:00 PM EDT Office Visit Gastroenterology - [address] [facility] [address] [facility] [address] [place] [phone] Nesha Petersen PA [address] [facility] [address] [place] [address] Health Maintenance Due Date Last Done Comments HIB Vaccines (1 of 1 - Risk 1-dose series) 07/11/1965 Meningococcal ACWY Vaccine (1 - Risk 2-dose series) 1966 Diabetes: Annual Foot Exam 1974 Meningococcal B Vaccine (1 of 4 - Increased Risk) 1974 DTaP,Tdap,and Td Vaccines (1 - Tdap) 1983 Pneumococcal Vaccine: 50+ Years (1 of 2 - PCV) 1983 Zoster Vaccines (1 of 2) 1983 Hepatitis B Vaccines (2 of 3 - 19+ 3-dose series) 08/28/2013 07/31/2013 RSV Immunization Adult Patients (1 - Risk 50-74 years 1-dose series) 2014 COVID-19 Vaccine (3 - Pfizer risk series) 03/03/2021 02/03/2021, 01/15/2021 HIV Screening 09/02/2022 Medicare Annual Wellness Visit 09/02/2022 Social Influencers of Health Screening 09/02/2022 Depression Screening 09/24/2024 Influenza Vaccine (#1) 2025 8, 06/27/2017, 07/06/2015, Additional history exists Diabetes: Blood Sugar Control Test (HGBA1C) 12/03/2025 06/05/2025, 12/24/2024, 12/25/2023 Diabetes: Annual Urine Albumin-Creatinine Ratio (uACR) 12/24/2025 12/24/2024, 01/24/2023 Diabetes: Annual GFR (Glomerular Filtration Rate) 12/24/2025 12/24/2024, 02/20/2024 Hypertension/CHF/CAD Annual BMP Blood Test 12/24/2025 12/24/2024, 02/20/2024 Diabetes: Annual Retina Eye Exam 07/01/2026 07/01/2025 Breast Cancer Screening 07/02/2026 07/02/20 24, 07/02/2023, 02/08/2021, Additional history exists Colorectal Cancer Screening: Colonoscopy 11/26/2029 11/27/2019 Cholesterol Screening (Lipid Panel) 12/24/2029 12/24/2024, 12/25/2023 Hepatitis A Vaccines Aged Out 07/31/2013 No long er eligible based on patient's age to complete this topic Hepatitis C Screening Completed 02/20/2024 HPV Vaccines Aged Out No longer eligi ble based on patient's age to complete this topic IPV Vaccines Aged Out No longer eligi ble based on patient's age to complete this topic MMR Vaccines Aged Out No longer eligi ble based on patient's age to complete this topic RSV Immunization Patients Under 20 months Aged Out No longer eligible based on patient's age to complete this topic Varicella Vaccines Aged Out No longer eligible based on patient's age to complete this topic Medical Devices Implanted Type Area Lithographic Etcher Device Identifier Shelf Expiration Date Model / Serial / Lot Screw Marcin Polyaxial Extended Tab 6.5x45mm - Sn/A - [id number] Implanted:Qty : 4 on 12/03/2024 by Reymundo Thompson MD at [facility] Internal and External Fixation N/A: Spine Lumbar [employer]- K2M [id number] / N/A / N/A Bone Graft Spine Infuse Sm - Sn/A - [id number] Implanted:Qty : 1 on 12/03/2024 by Reymundo Thompson MD at [facility] [employer] BMP N/A: Spine Lumbar [employer]ANEK 07/25/2025 [id number] / N/A / [id number] Putty Bone Graft 2.5ml Peptide Enhanced - Sn/A - [id number] Implanted:Qty : 1 on 12/03/2024 by Reymundo Thompson MD at [facility] [employer] N/A: Spine Lumbar [employer] 04/23/2027 700-025 / N/A / [id number] Putty Bone Graft 2.5ml Peptide Enhanced - Sn/A - [id number] Implanted:Qty : 1 on 12/03/2024 by Reymundo Thompson MD at [facility] [employer] N/A: Spine Lumbar [employer] 12/22/2026 700-025 / N/A / [id number] Cage Spinal [id number] 6deg [address] Lmbr Titan Lrdtc Lf - Sn/A - [id number] Implanted:Qty : 1 on 12/03/2024 by Reymundo Thompson MD at [facility] Spinal Hardware N/A: Spine Lumbar [employer] 01/15/2028 [id number] / N/A / [id number] Screw Set [place] - Sn/A - [id number] Implanted:Qty : 1 on 12/03/2024 by Reymundo Thompson MD at [facility] Spinal Hardware N/A: Spine Lumbar [employer]- K2M [id number] / N/A / N/A Saw Contr Blt/Hex 5.5x40mm - Sn/A - [id number] Implanted:Qty : 1 on 12/03/2024 by Reymundo Thompson MD at [facility] Spinal Hardware N/A: Spine Lumbar [employer]- K2M [id number] / N/A / N/A Saw Contr Blt/Hex 5.5x45mm - Sn/A - [id number] Implanted:Qty : 1 on 12/03/2024 by Reymundo Thompson MD at [facility] Spinal Hardware N/A: Spine Lumbar [employer]INE- K2M [id number] / N/A / N/A Procedures Procedure Name Priority Date/Time Associated Diagnosis Comments EXTERNAL DIABETIC RETINA EYE EXAM 07/01/2025 NM GASTRIC EMPTYING STUDY Routine 06/23/2025 12:43 PM EDT Hepatitis B infection without delta agent without hepatic coma, unspecified chronicity Gastroesophageal reflux disease, unspecified whether esophagitis present History of throat cancer HEMOGLOBIN A1C Routine 06/05/2025 8:55 AM EDT Type 2 diabetes mellitus with diabetic neuropathy, without long-term current use of insulin ([facility] V24, [facility] V28) MICROALBUMIN CREATININE URINE RATIO Routine 12/24/2024 8:23 AM EDT Primary hypertension Type 2 diabetes mellitus with diabetic neuropathy, without long-term current use of insulin (CMS/HCC V24, CMS/HCC V28) Mixed hyperlipidemia Sickle cell disease with crisis (CMS/HCC V24, CMS/HCC V28) Adult general medical examination COMPREHENSIVE METABOLIC PANEL Routine 12/24/2024 8:16 AM EDT Primary hypertension Type 2 diabetes mellitus with diabetic neuropathy, without long-term current use of insulin (CMS/HCC V24, CMS/HCC V28) Mixed hyperlipidemia Sickle cell disease with crisis (CMS/HCC V24, CMS/HCC V28) LIPID PANEL WITH REFLEX TO DIRECT LDL Routine 12/24/2024 8:16 AM EDT Primary hypertension Type 2 diabetes mellitus with diabetic neuropathy, without long-term current use of insulin (CMS/HCC V24, CMS/HCC V28) Mixed hyperlipidemia Sickle cell disease with crisis (CMS/HCC V24, CMS/HCC V28) [facility] SCREENING DIGITAL Routine 07/02/2024 8:34 AM EDT Encounter for screening mammogram for malignant neoplasm of breast HEPATITIS C SCREENING Routine 02/20/2024 COLONOSCOPY Routine 11/27/2019 from Last 3 Months or Most Recently Relevant to Health Maintenance Results * External Diabetic Retina Eye Exam Report (07/01/2025) Anatomical Region Laterality Modality [facility]trasound Provider [facility] PROCEDURES Final Result * NM Gastric Emptying Study (06/23/2025 12:43 PM EDT) Anatomical Region Laterality Modality Body Nuclear Medicine 06/24/2025 4:57 PM EDT Impressions 06/24/2025 4:59 PM EDT Slightly delayed solid material gastric emptying. Jimy SAVAGE ([id number]) -------- FINAL REPORT -------- Dictated By: Lindsay Cross Dictated Date: 06/24/2025 16:57 ET Assigned Physician: Lindsay Cross Reviewed and Electronically Signed By: Lindsay Cross Signed Date: 06/24/2025 16:59 ET Workstation ID: [id number] Transcribed By: Self Edit Transcribed Date: 06/24/2025 16:57 ET Narrative 06/24/2025 4:59 PM EDT HISTORY: Gastroesophageal reflux disease. Postprandial bloating and nausea. Question disordered gastric emptying. FINDINGS: Radionucleotide gastric emptying study performed following ingestion of 0.9 mCi of Tc99m sulfur colloid mixed with eggs for solid food evaluation. Solid food evaluation time to half peak clearance is 104 minutes with normal being less than 90 minutes. Patients 4 hour retention amount was calculated at 11%. Reference normal solid residual activity: less than 90% at 1 hour less than 60% at 2 hours less than 30% at 3 hours less than 10% at 4 hours Procedure Note Lindsay Cross MD - 06/24/2025 HISTORY: Gastroesophageal reflux disease. Postprandial bloating andnausea. Question disordered gastric emptying. FINDINGS: Radionucleotide gastric emptying study performed followingingestion of 0.9 mCi of Tc99m sulfur colloid mixed with eggs for solidfood evaluation. Solid food evaluation time to half peak clearance is 104 minutes withnormal being less than 90 minutes. Patients 4 hour retention amount was calculated at 11%. Reference normal solid residual activity: less than 90% at 1 hour less than 60% at 2 hours less than 30% at 3 hours less than 10% at 4 hours IMPRESSION: Slightly delayed solid material gastric emptying. Jimy SAVAGE ([id number]) -------- FINAL REPORT -------- Dictated By: Lindsay Cross Dictated Date: 06/24/2025 16:57 ET Assigned Physician: Lindsay Cross Reviewed and Electronically Signed By: Lindsay Cross Signed Date: 06/24/2025 16:59 ET Workstation ID: [id number] Transcribed By: Self Edit Transcribed Date: 06/24/2025 16:57 ET Nesha SAVAGE IMG NM PROCEDURES Final Resul t * (ABNORMAL) Hemoglobin A1c (06/05/2025 8:55 AM EDT) Hemoglobin A1C 7.8(H) <6.5 % LAB CHEMISTRY METHOD 06/05/2025 12:41 PM EDT [facility] Mean Bld Glu Estim. 177 mg/dL LAB CHEMISTRY METHOD 06/05/2025 12:41 PM EDT [facility] Blood Venous blood specimen / Unknown Venipuncture / Unknown 06/05/2025 8:55 AM EDT 06/05/2025 8:55 AM EDT us Christiano Garcia MD LAB BLOOD ORDERABLES Final Res ult [facility] [address] [place] [address], [place] [phone] * (ABNORMAL) Microalbumin creatinine urine ratio (12/24/2024 8:23 AM EDT) Creatinine, Urine 148.0 mg/dL LAB CHEMISTRY METHOD 12/24/2024 9:52 AM EDT [facility] Microalb, Ur 29.5(H) 0.0 - 29.0 mg/L LAB CHEMISTRY METHOD 12/24/2024 9:52 AM EDT [facility] Microalb/Crea t Ratio 20 <30 mg/g creat LAB CHEMISTRY METHOD 12/24/2024 9:52 AM EDT [facility] Urine Urine specimen obtained by clean catch procedure / Unknown Non-blood Collection / Unknown 12/24/2024 8:23 AM EDT 12/24/2024 9:08 AM EDT us Christiano Garcia MD LAB URINE ORDERABLES Final Res ult [facility] [address] [place] [address], [place] [phone] * (ABNORMAL) Lipid panel with reflex to direct LDL (12/24/2024 8:16 AM EDT) Pathologist [facility] Cholesterol 157 0 - 200 mg/dL LAB CHEMISTRY METHOD 12/24/2024 9:[address] [facility] Triglycerides 361(H) 0 - 150 mg/dL LAB CHE[facility]STRY [facility] HDL 36(L) >=40 mg/dL LAB CHEMISTRY METHOD 12/24/2024 9:[address] [facility] LDL Calculated 49 0 - 100 mg/dL LAB CHEMISTRY METHOD 12/24/2024 9:[address] [facility] VLDL Cholesterol Marcell 72.2 mg/dL LAB CHEMISTRY METHOD 12/24/2024 9:[address] [facility] Non HDL Chol. (LDL+VLDL) 121 <145 mg/dL LAB CHEMISTRY METHOD 12/24/2024 9:[address] [facility] Chol/HDL Ratio 4.4 0.0 - 4.4 LAB CHEMISTRY METHOD 12/24/2024 9:[address] [facility] Blood Venous blood specimen / Unknown Venipuncture / Unknown 12/24/2024 8:16 AM EDT 12/24/2024 9:01 AM EDT us Christiano Garcia MD LAB BLOOD ORDERABLES Final Res ult [facility] [address] [place] [address], * (ABNORMAL) Comprehensive metabolic panel (12/24/2024 8:16 AM EDT) [facility] Sodium 139 133 - 145 mmol/L LAB CHEMISTRY METHOD 12/24/2024 9:[address] [facility] Potassium 4.3 3.5 - 5.5 mmol/L LAB CHEMISTRY METHOD 12/24/2024 9:[address] [facility] Chloride 102 96 - 110 mmol/L LAB CHEMISTRY METHOD 12/24/2024 9:[address] [facility] CO2 32 21 - 32 mmol/L LAB CHEMISTRY METHOD 12/24/2024 9:[address] [facility] Anion Gap 5 3 - 11 LAB CHEMISTRY METHOD 12/24/2024 9:[address] [facility] Glucose 171(H) 70 - 100 mg/dL LAB CHEMISTRY METHOD 12/24/2024 9:[address] [facility] BUN 9 5 - 25 mg/dL LAB CHEMISTRY METHOD 12/24/2024 9:[address] [facility] Creatinine 0.55 0.50 - 1.10 mg/dL LAB CHEMISTRY METHOD 12/24/2024 9:[address] [facility] eGFR 105 >=60 mL/min/1. 73m2 LAB CHEMISTRY METHOD 12/24/2024 9:[address] [facility] Comment:Calculation based on the Chronic Kidney Disease Epidemiology Collaboration (CKD-EPI) equation refit without adjustment for race. BUN/Creatinine Ratio 16.4 LAB CHEMISTRY METHOD 12/24/2024 9:[address] [facility] Calcium 9.8 8.5 - 10.5 mg/dL LAB CHEMISTRY METHOD 12/24/2024 9:[address] [facility] AST (SGOT) 12 10 - 42 unit/L LAB CHEMISTRY METHOD 12/24/2024 9:[address] [facility] ALT (SGPT) 22 10 - 60 unit/L LAB CHEMISTRY METHOD 12/24/2024 9:[address] [facility] Alkaline Phosphatase 100 42 - 121 unit/L LAB CHEMISTRY METHOD 12/24/2024 9:[address] [facility] Total Protein 7.0 6.0 - 8.0 g/dL LAB CHEMISTRY METHOD 12/24/2024 9:[address] [facility] Albumin 3.4 3.2 - 5.0 g/dL LAB CHEMISTRY METHOD 12/24/2024 9:51 AM EDT [facility] Total Bilirubin 0.4 0.0 - 1.4 mg/dL LAB CHEMISTRY METHOD 12/24/2024 9:51 AM EDT [facility] Blood Venous blood specimen / Unknown Venipuncture / Unknown 12/24/2024 8:16 AM EDT 12/24/2024 9:01 AM EDT us Christiano Garcia MD LAB BLOOD ORDERABLES Final Res ult [facility] [address] [place] [address], * ABUNDIO SCREENING DIGITAL (07/02/2024 8:34 AM EDT) Anatomical Region Laterality Modality Mammography 07/01/2024 3:21 PM EDT Narrative 07/02/2024 8:34 AM EDT [facility] Diagnostic Imaging Department [address] [place] [address] Patient: TATYAVILA /Age/Sex: 1965 - 59 - F Unit#: [id number] Location/Status: SPDIMAM/REG CLI Mnemonic/Ordering Site: DIGSC/SPMAM Ordering Physician: CHRISTIANO GARCIA MD Abundio Screening Digital - 07/01/24 - 1603 Report Status:Signed EXAM: [facility] Screening Digital EXAM DATE AND TIME: 07/01/2024 4:04 PM HISTORY: Screening. Family history of breast carcinoma including sister at age 49 and 2 maternal aunts. COMPARISON: 06/30/23, 02/07/21, 08/15/19 TECHNIQUE: Bilateral digital breast tomosynthesis was performed in the CC and MLO projections. Computer aided detection with [id number] 3D 3.1 was employed. TISSUE DENSITY: b. There are scattered areas of fibroglandular density. FINDINGS: No suspicious masses, grouped microcalcifications, or areas of architectural distortion are seen. Benign rim calcifications are again noted. The skin and vascularity are unremarkable. IMPRESSION: Stable mammographic appearance of the breasts. No evidence of malignancy is seen. A negative mammogram in the presence of a clinically suspicious palpable abnormality does not preclude the possibility of malignancy or alter the indications for biopsy. BI-RADS: Category 2: Benign RECOMMENDATION(S): 1: Routine screening mammogram BILATERAL in 1 year. Mammogram performed at [facility] [place] [address] Dictating Physician: LINDSAY CROSS MD Electronically Signed by: LINDSAY CROSS MD Dic Date/Time: 07/02/24833 Sign date/Time: 07/02/24833 Procedure Note Lindsay Cross MD - 07/22/2024 [facility] Diagnostic Imaging Department [address] [place] [address] Patient: MARGARITA POSEY /Age/Sex: 1965 - 59 - F Unit#: [id number] Location/Status: SPDIMAM/REG CLI Mnemonic/Ordering Site: DIGSC/SPMAM Ordering Physician: CHRISTIANO GARCIA MD Abundio Screening Digital - 07/01/24 - 1603 Report Status:Signed EXAM: [facility] Screening Digital EXAM DATE AND TIME: 07/01/2024 4:04 PM HISTORY: Screening. Family history of breast carcinoma including sisterat age 49 and 2 maternal aunts. COMPARISON: 06/30/23, 02/07/21, 08/15/19 TECHNIQUE: Bilateral digital breast tomosynthesis was performed in the CCand MLO projections. Computer aided detection with AugmentD Adteractive 3D 3.1was employed. TISSUE DENSITY: b. There are scattered areas of fibroglandular density. FINDINGS: No suspicious masses, grouped microcalcifications, or areas ofarchitectural distortion are seen. Benign rim calcifications are again noted. The skinand vascularity are unremarkable. IMPRESSION: Stable mammographic appearance of the breasts. No evidence of malignancyis seen. A negative mammogram in the presence of a clinically suspicious palpable abnormality does not preclude the possibility of malignancy or alter the indications for biopsy. BI-RADS: Category 2: Benign RECOMMENDATION(S): 1: Routine screening mammogram BILATERAL in 1 year. Mammogram performed at [facility] [place] [address] Dictating Physician: LINDSAY CROSS MD Electronically Signed by: LINDSAY CROSS MD Dic Date/Time: 07/02/24833 Sign date/Time: 07/02/24833 Christiano Garcia MD IMG BI PROCEDURES Final Result * Hepatitis C Screening (02/20/2024) Hepatitis C Screening abstracted Historical Provider HEALTH MAINTENANCE Final Result * Colonoscopy (11/27/2019) Colonoscopy No interpretation , abstracted Anatomical Region Laterality Modality Other us Historical Provider HEALTH MAINTENANCE Final Result from Last 3 Months or Most Recently Relevant to Health Maintenance Insurance * Guarantor: Margarita Posey Account Type Relation to Patient Date of Phone Billing Address Personal/Family Self 1965 [address] [place] [address] [employer] MEDICARE Member Subscriber Plan / Payer (Ef fective 2019-Present) Name:MARGARITA POSEY Relation to Subscriber:Self Name:Margarita Posey Payer ID:[id number] Group ID:[id number] Type:Not on file Address: [place] [address] [address] [address] Advance Directives * Full Code - Default (Latest Code Status on File) Date Activated Date Inactivated Comments 12/03/2024 7:36 AM 12/04/2024 3:03 PM This is orde r is used when code status has not been discussed with the patient, or code status is otherwise unknown/unconfirmed To update the patient's code status, place a code status order. Do not modify or discontinue any currently active code status orders. Care Teams Survey Field Technician Relationship Specialty Start Date End Date Christiano Garcia MD [address] [facility] [address] [place] [id number] PCP - General Internal Medicine 07/01/19
--- OUTSIDE RECORDS SUMMARY | 2025-07-17 14:48 | XMS_ITS | Encounter Summary ---
Author Organization [facility] Address [address] [place] [address] Care Team Providers Care Group Art Supervisor Name Role Phone Peg Garcia MD Primary Care Provider [phone] Peg Garcia MD Primary Care Provider [phone] Encounter Details Date Type Department Care Team Description 11/06/2019 Telephone Internal Medicine - [address], [address] [place], [place] [phone] Peg Garcia MD [address] [place] [phone] Social History Tobacco Use Types Packs/Day [...] encounter Miscellaneous Notes * Telephone Encounter - Allyn Resendez M.A. - 11/14/2019 10:11 AM EST She states her pain is getting better with exercises she is doing at home and she is trying to loseweight along with the pain medicine you are prescribing. She does not want physical therapy * Telephone Encounter - Angela Linda M.A. - 11/06/2019 2:15 PM EST ----- Message from Peg Garcia MD sent at 11/04/2019 6:32 AM EST ----- Patient's x-ray is showing arthritic changes, similar to previous x-ray, ask the patient how is thepain and if interested to go for physical therapy documented in this encounter Plan of Treatment Not on file documented as of this encounter Visit Diagnoses Not on filedocumented in this encounter Care Teams Group Art Supervisor Relationship Specialty Start Date End Date Peg Garcia MD PCP - General Internal Medicine 07/01/19 06/20/21 Peg Garcia MD PCP - General Internal Medicine 06/21/21 documented as of this encounter
--- OUTSIDE RECORDS SUMMARY | 2025-07-17 14:48 | XMS_ITS | Encounter Summary ---
Author Organization [facility] Address [address] [place] [address] Care Team Providers Care Powdered Sugar Pulverizer Operator Name Role Phone Peg Garcia MD Primary Care Provider [phone]- [phone] Peg Garcai MD Primary Care Provider [phone] Reason for Visit * Reason Comments E-prescribe Rx Request Encounter Details Date Type Department Care Team Description 06/14/2021 Refill Adult Medicine [address] [address] Peg Garcia MD [address] [place] [phone] E-prescribe Rx Request Social History Tobacco [...] Miscellaneous Notes * Telephone Encounter - Cindy ROMERO - 06/14/2021 10:06 AM EDT BP Readings from Last 3 Encounters: 12/29/20 (!) 140/60 11/08/20 130/70 10/06/20 138/66 * Telephone Encounter - Katlyn Ramos - 06/14/2021 9:17 AM EDT Ana 7/1/21 documented in this encounter Plan of Treatment Not on file documented as of this encounter Visit Diagnoses Not on filedocumented in this encounter Care Teams Powdered Sugar Pulverizer Operator Relationship Specialty Start Date End Date Peg Garcia MD PCP - General Internal Medicine 07/01/19 06/20/21 Peg Garcia MD PCP - General Internal Medicine 06/21/21 documented as of this encounter
--- OUTSIDE RECORDS SUMMARY | 2025-07-17 14:48 | XMS_ITS | Encounter Summary ---
Author Organization [facility] Address [address] [place] [address] Care Team Providers Care Campus Monitor Name Role Phone Peg Garcia MD Primary Care Provider [phone]- [phone] Peg Garcia MD Primary Care Provider [phone]- [phone] Reason for Visit * Reason Onset Date Comments Faxed Order 08/29/2019 Diabetic detaile d written order Encounter Details Date Type Department Care Team Description 08/29/2019 Telephone Internal Medicine - [address], [address] [place] [address] Peg Garcia MD [address] [place] [phone] Faxed Order (Diabetic detailed written order) Social History Tobacco Use Types Packs/Day Years [...] Telephone Encounter - Allyn Resendez M.A. - 08/29/2019 3:45 PM EST Left message on machine. Order is for Lancets and test strip renewal. Per medicare, patient can only test 1daily if not on insulin. Per instructions patient is testing twice daily. I need to know why documented in this encounter Plan of Treatment Not on file documented as of this encounter Visit Diagnoses Not on filedocumented in this encounter Care Teams Campus Monitor Relationship Specialty Start Date End Date Peg Garcia MD PCP - General Internal Medicine 07/01/19 06/20/21 Peg Garcia MD PCP - General Internal Medicine 06/21/21 documented as of this encounter
--- OUTSIDE RECORDS SUMMARY | 2025-07-17 14:48 | XMS_ITS | Encounter Summary ---
Author Organization [facility] Address [address] [place] [address] Care Team Providers Care Garbage Collection Supervisor Name Role Phone Peg Garcia MD Primary Care Provider [phone] Peg Garcia MD Primary Care Provider [phone]- [phone] Reason for Visit * Reason Onset Date Comments Medication 11/12/2019 Colonoscopy Encounter Details Date Type Department Care Team Description 11/12/2019 Refill [address] [phone] Hector Krishna MD [address] [place] [phone] Medication (Colonoscopy) Social History Tobacco Use Types Packs/Day Years [...] on filedocumented in this encounter Care Teams Garbage Collection Supervisor Relationship Specialty Start Date End Date Peg Garcia MD PCP - General Internal Medicine 07/01/19 06/20/21 Peg Garcia MD PCP - General Internal Medicine 06/21/21 documented as of this encounter
--- OUTSIDE RECORDS SUMMARY | 2025-07-17 14:48 | XMS_ITS | Encounter Summary ---
Author Organization [facility] Address [address] [place] [address] Care Team Providers Care Obgyn Nurse Name Role Phone Peg Garcia MD Primary Care Provider [phone] Peg Garcia MD Primary Care Provider [phone] Encounter Details Date Type Department Care Team Description 05/02/2021 Environmental Engineer Scientist Report Medical Records [address] [place] [address] Kemi Aguilera MD Social History Tobacco Use Types Packs/Day [...] on filedocumented in this encounter Care Teams Obgyn Nurse Relationship Specialty Start Date End Date Peg Garcia MD PCP - General Internal Medicine 07/01/19 06/20/21 Peg Garcia MD PCP - General Internal Medicine 06/21/21 documented as of this encounter
--- OUTSIDE RECORDS SUMMARY | 2025-07-17 14:48 | XMS_ITS | Encounter Summary ---
Author Organization [facility] Address [address] [place] [address] Care Team Providers Care Cylinder Sander Operator Name Role Phone Community, Pcp Primary Care Provider Rossana Antoine MD Primary Care Provider Un available Peg Garcia MD Primary Care Provider [phone] Peg Garcia MD Primary Care Provider [phone] Encounter Details Date Type Department Care Team Description 10/29/2014 [facility] Medical Records [address] [place] [address] Abdelrahman Tejada MD Social History Tobacco Use Types Packs/Day [...] on filedocumented in this encounter Care Teams Cylinder Sander Operator Relationship Specialty Start Date End Date Community, Pcp PCP - General Internal Medicine 01/19/16 01/23/16 Rossana Washington MD PCP - General Internal Medicine 01/24/16 Peg Garcia MD PCP - General Internal Medicine 07/01/19 06/20/21 Peg Garcia MD PCP - General Internal Medicine 06/21/21 documented as of this encounter
--- OUTSIDE RECORDS SUMMARY | 2025-07-17 14:48 | XMS_ITS | Encounter Summary ---
Author Organization [facility] Address [address] [place] [address] Care Team Providers Care Performance Specialist Name Role Phone Rossana Washington MD Primary Care Provider Un available Peg Garcia MD Primary Care Provider [phone] Peg Garcia MD Primary Care Provider [phone]- [phone] Encounter Details Date Type Department Care Team Description 02/03/2016 Release of Information Medical Records [address] [place] [address] Abstract, Provider Social History Tobacco Use Types Packs/Day Years Used Date Smoking Tobacco: Never Assessed Sex Assigned at Date Recorded Not on file Job Start Date Occupation Industry Not on file Not on file Not on file documented as of this encounter Plan of Treatment Not on file documented as of this encounter Visit Diagnoses Not on filedocumented in this encounter Care Teams Performance Specialist Relationship Specialty Start Date End Date Rossana Washington MD PCP - General Internal Medicine 01/24/16 Peg Garcia MD PCP - General Internal Medicine 07/01/19 06/20/21 Peg Garcia MD PCP - General Internal Medicine 06/21/21 documented as of this encounter
--- OUTSIDE RECORDS SUMMARY | 2025-07-17 14:48 | XMS_ITS | Encounter Summary ---
Author Organization [facility] Address [address] [place] [address] Care Team Providers Care Clerical Adviser Name Role Phone Peg Garcia MD Primary Care Provider [phone] Peg Garcia MD Primary Care Provider [phone] Reason for Visit * Reason Comments E-prescribe Rx Request Encounter Details Date Type Department Care Team Description 10/23/2019 Refill Adult Med - [place] [address] [place], [place] [phone] Peg Garcia MD [address] [place] [phone] E-prescribe Rx Request Social History Tobacco Use [...] encounter Miscellaneous Notes * Telephone Encounter - Narcisa Ko - 10/23/2019 3:56 PM EST Patient would like script to be: E-PRESCRIBED/FAXED TO PHARMACY WHEN WAS THE PATIENT'S LAST APPOINTMENT IN ADULT MEDICINE? 07/15/19 WHEN WAS THE LAST TIME THE PATIENT SAW THEIR PCP? Same as above Does patient have an upcoming appointment? Yes 11/04/2019 (THE MEDICATION REQUESTED IS ON THE MED [...] N/A Patients current insurance carrier is: Payor: [email or web address] / Plan: [place] / Product Type: MEDICARE [id number] documented in this encounter Plan of Treatment Not on file documented as of this encounter Visit Diagnoses Diagnosis Pain of left hip joint- Primary documented in this encounter Care Teams Clerical Adviser Relationship Specialty Start Date End Date Peg Garcia MD PCP - General Internal Medicine 07/01/19 06/20/21 Peg Garcia MD PCP - General Internal Medicine 06/21/21 documented as of this encounter
--- OUTSIDE RECORDS SUMMARY | 2025-07-17 14:48 | XMS_ITS | Encounter Summary ---
Author Organization [facility] Address [address] [place] [address] Care Team Providers Care Marketing Graphics Specialist Name Role Phone Peg Garcia MD Primary Care Provider [phone] Encounter Details Date Type Department Care Team Description 07/25/2021 Shade Cutter Report Medical Records [address] [place] [address] Kemi Aguilera MD Social History Tobacco Use [...] on filedocumented in this encounter Care Teams Marketing Graphics Specialist Relationship Specialty Start Date End Date Peg Garcia MD PCP - General Internal Medicine 06/21/21 documented as of this encounter
--- OUTSIDE RECORDS SUMMARY | 2025-07-17 14:48 | XMS_ITS | Encounter Summary ---
Author Organization [facility] Address [address] [place] [address] Care Team Providers Care Management Intern Name Role Phone Peg Garcia MD Primary Care Provider [phone] Reason for Visit * Reason Onset Date Comments Faxed Refill 06/21/2021 Encounter Details Date Type Department Care Team Description 06/21/2021 Refill Adult Medicine [address] [address] Peg Garcia MD [address] [place] [phone] Faxed Refill Social History Tobacco Use [...] Telephone Encounter - Tessa Villalta L.P.N. - 06/21/2021 10:00 AM EDT Losartan 100 mg daily Last refill 05/11/2020 #90 3 refills BP Readings from Last 5 Encounters: 12/29/20 (!) 140/60 11/08/20 130/70 10/06/20 138/66 09/10/20 (!) 160/94 05/11/20 (!) 150/73 Lab Results Component Value Date NA 140 09/21/2020 K 4.6 09/21/2020 CO2 30 09/21/2020 CL 106 09/21/2020 BUN 15 09/21/2020 CREAT 0.81 09/21/2020 GLU 121 09/21/2020 ALB 4.0 09/21/2020 SGOT 19 09/21/2020 SGPT 35 09/21/2020 TBILI 0.4 09/21/2020 ALKPHOS 66 09/21/2020 TP 7.7 09/21/2020 CA 9.5 09/21/2020 GFR > 60 09/21/2020 Follow up 10/19/2020 thanks documented in this encounter Plan of Treatment Not on file documented as of this encounter Visit Diagnoses Not on filedocumented in this encounter Care Teams Management Intern Relationship Specialty Start Date End Date Peg Garcia MD PCP - General Internal Medicine 06/21/21 documented as of this encounter
--- OUTSIDE RECORDS SUMMARY | 2025-07-17 14:48 | XMS_ITS | Encounter Summary ---
Author Organization [facility] Address [address] [place] [address] Care Team Providers Care Addiction Specialist Name Role Phone Peg Garcia MD Primary Care Provider [phone] Peg Garcia MD Primary Care Provider [phone] Reason for Visit * Reason Comments E-prescribe Rx Request Encounter Details Date Type Department Care Team Description 04/12/2021 Refill Internal Medicine - [address], [address] [place] [address] Peg Garcia MD [address] [place] [phone] E-prescribe Rx Request Social History Tobacco [...] have Coronavirus / COVID-19? No / Unsure 03/24/2021 9:49 AM EDT documented as of this encounter Miscellaneous Notes * Telephone Encounter - Katlyn Ramos - 04/12/2021 1:46 PM EDT Ana 12/29/20 documented in this encounter Plan of Treatment Not on file documented as of this encounter Visit Diagnoses Not on filedocumented in this encounter Care Teams Addiction Specialist Relationship Specialty Start Date End Date Peg Garcia MD PCP - General Internal Medicine 07/01/19 06/20/21 Peg Garcia MD PCP - General Internal Medicine 06/21/21 documented as of this encounter
--- OUTSIDE RECORDS SUMMARY | 2025-07-17 14:48 | XMS_ITS | Encounter Summary ---
Author Organization [facility] Address [address] [place] [address] Care Team Providers Care Egg Candler Name Role Phone Peg Garcia MD Primary Care Provider [phone] Encounter Details Date Type Department Care Team Description 08/09/2023 Transfer Records Medical Records [address] [place] [address] Luis Daniel Galindo Social History Tobacco Use Types Packs/Day Years Used Date Smoking Tobacco: Former Smokeless Tobacco: Former Alcohol Use Standard Drinks/Week Comments No 0 (1 standard drink = 0.6 oz pur e alcohol) Sex Assigned at Date Recorded Not on file Job Start Date Occupation Industry Not on file Not on file Not on file COVID-19 Exposure Response Date Recorded In the last 10 days, have yo u been in contact with someone who was confirmed or suspected to have Coronavirus/COVID-19? No / Unsure 08/02/2023 9:18 AM EST documented as of this encounter Plan of Treatment Not on file documented as of this encounter Visit Diagnoses Not on filedocumented in this encounter Care Teams Egg Candler Relationship Specialty Start Date End Date Peg Garcia MD PCP - General Internal Medicine 06/21/21 documented as of this encounter
--- OUTSIDE RECORDS SUMMARY | 2025-07-17 14:48 | XMS_ITS | Encounter Summary ---
Author Organization [facility] Address [address] [place] [address] Care Team Providers Care Pulmonary Specialist Name Role Phone Peg Garcia MD Primary Care Provider [phone] Reason for Visit * Reason Onset Date Comments Call From Pharmacy 12/27/2023 Melissa Encounter Details Date Type Department Care Team Description 12/27/2023 Telephone Internal Medicine - [address], [address] [place], [place] [phone] Peg Garcia MD [address] [place] [phone] Call From Pharmacy ([facility]) Social History Tobacco Use Types Packs/Day Years [...] encounter Miscellaneous Notes * Telephone Encounter - Law Blackwell - 12/28/2023 9:02 AM EDT Spoke with justino and informed of message below. * Telephone Encounter - Peg Garcia MD - 12/27/2023 4:33 PM EDT Discontinued since pt is not tolerating * Telephone Encounter - Law Blackwell - 12/27/2023 11:[address] garcia please advise is this medication discontinue for pt * Telephone Encounter - Priscila Magaña - 12/27/2023 10:24 AM EDT atorvastatin (LIPITOR) 40 MG tablet (Discontinued) 90 Tablet 3 11/20/2022 12/19/2023 Sig - Route: Take 1 Tablet by mouth daily for 360 days. - Oral Sent to pharmacy as: Atorvastatin Calcium 40 MG Oral Tablet (LIPITOR) Pharmacy called requested a call back and needs updated medication list stated they were unaware atorvastatin was discontinued. Tana Roman [phone] documented in this encounter Plan of Treatment Not on file documented as of this encounter Visit Diagnoses Not on filedocumented in this encounter Care Teams Pulmonary Specialist Relationship Specialty Start Date End Date Peg Garcia MD PCP - General Internal Medicine 06/21/21 documented as of this encounter
--- OUTSIDE RECORDS SUMMARY | 2025-07-17 14:48 | XMS_ITS | Clinical Summary ---
Author Organization [facility] Address [address] [place] [address] Care Team Providers Care Plastic Products Sales Representative Name Role Phone Peg Garcia MD Primary Care Provider [phone] Allergies No known active allergies Medications Medication Sig Dispensed Refills Start Date End Date Status metFORMIN (GLUCOPHAGE) tablet 500 mg Take 1 tablet (500 mg total) by mouth 2 (two) times a day with meals. 0 Active omeprazole (PriLOSEC) 20 MG capsule Take 1 capsule (20 mg total) by mouth daily. 0 Active tiZANidine (ZANAFLEX) 4 MG tablet Take 1 tablet (4 mg total) by mouth every 6 (six) hours as needed. 0 Active glipiZIDE (GLUCOTROL) tablet 5 mg Take 1 tablet (5 mg total) by mouth 2 (two) times a day before breakfast and dinner. 0 Active losartan (COZAAR) 100 MG tablet Take 1 tablet (100 mg total) by mouth daily. 0 Active naproxen (NAPROSYN) 500 MG tablet Take 1 tablet (500 mg total) by mouth 2 (two) times a day with meals. 0 Active atorvastatin (LIPITOR) tablet 40 mg Take 1 tablet (40 mg total) by mouth daily. 0 Active gabapentin (NEURONTIN) 100 MG capsule Take 1 capsule (100 mg total) by mouth 3 (three) times a day. 0 Active acetaminophen (TYLENOL) 500 MG tablet Take 1 tablet (500 mg total) by mouth. 0 Active Family History Medical History Relation Name Comments Uterine cancer Daughter Breast cancer Maternal Aunt Breast cancer Paternal Aunt Relation Name Status Comments Daughter Alive Maternal Aunt Paternal Aunt Social History Tobacco Use Types Packs/Day Years Used Date Smoking Tobacco: Former Cigarettes Tobacco Cessation:Counseling Given: Not Answered Comments:Smoked for 10 years; quit in 1997 Alcohol Use Standard Drinks/Week Comments Yes 0 (1 standard drink = 0.6 oz pur e alcohol) Socially Sex and Gender Information Value Date Recorded Sex Assigned at Not on file Gender Identity Not on file Sexual Orientation Not on file Job Start Date Occupation Industry Not on file Not on file Not on file Last Filed Vital Signs Vital Sign Reading Time Taken Comments Blood Pressure 151/68 02/08/2024 12:06 PM EDT Pulse 78 02/08/2024 12:06 PM EDT Temperature 36.4 C (97.5 F) 02/08/2024 12:06 PM EDT Respiratory Rate - - Oxygen Saturation 99% 02/08/2024 12:06 PM EDT Inhaled Oxygen Concentration - - Weight 85.1 kg (187 lb 9.6 oz) 02/08/2024 12:06 PM EDT Height 157.5 cm (5' 2 ) 01/24/2024 11:00 AM EDT Body Mass Index 34.31 01/24/2024 11:00 AM EDT Plan of Treatment Health Maintenance Due Date Last Done Comments Hepatitis C Screening 1964 COVID-19 Vaccine (#1) 1964 Depression Screening 1976 Preventative Health Evaluation 1982 DTap / Tdap / Td (1 - Tdap) 1983 Cervical Cancer Screening (P ap Smear) 1985 Colon Cancer Screening (Colonoscopy) 2009 Breast Cancer Screening (Mammogram) 2014 Shingrix-Zoster Vaccine (1 of 2) 2014 Influenza Vaccine (#1) 2025 06/27/2017 RSV Adult > 60+ Yrs or Pregn ant (1 - 1-dose 75+ series) 2039 Hepatitis B Vaccines Aged Out No long er eligible based on patient's age to complete this topic Pneumococcal Vaccine Aged Out No long er eligible based on patient's age to complete this topic RSV Ped < 20 months Aged Out No longe r eligible based on patient's age to complete this topic Care Teams Plastic Products Sales Representative Relationship Specialty Start Date End Date Peg Garcia MD [address] [facility] [address] [place] [phone] PCP - General Internal Medicine 01/10/24
--- OUTSIDE RECORDS SUMMARY | 2025-07-17 14:49 | XMS_ITS | Encounter Summary ---
Author Organization [facility] Address [address] [place] [address] Care Team Providers Care Fuse Maker Name Role Phone Peg Garcia MD Primary Care Provider [phone] Reason for Visit * Reason Onset Date Comments refill request 11/29/2021 Encounter Details Date Type Department Care Team Description 11/29/2021 Refill Internal Medicine - [address], [address] [place] [address] Peg Garcia MD [address] [place] [phone] refill request Social History Tobacco Use [...] encounter Miscellaneous Notes * Telephone Encounter - Natividad Coleman [place] - 11/29/2021 12:13 PM EST Lab Results Component Value Date HGBA1C 7.4 10/25/2021 HGBA1C 6.9 09/21/2020 HGBA1C 7.1 05/11/2020 HGBA1C 7.0 10/23/2019 HGBA1C 7.2 06/10/2019 * Telephone Encounter - Gerri Clark Lalita - 11/29/2021 12:12 PM EST Patient would like script to be: E-PRESCRIBED/FAXED TO PHARMACY WHEN WAS THE PATIENT'S LAST APPOINTMENT WITH THE PRESCRIBING PROVIDER? 10-19-2021 Does patient have an upcoming appointment?NO (THE MEDICATION REQUESTED IS ON THE MED LIST ABOVE) Did you check the Pharmacy information above?: YES Patient wants: 90 -day supply Is this a mail order prescription request ? NO Patients current insurance carrier is: Payor: [employer] / Plan: [facility] / Product Type: HMO [id number] documented in this encounter Plan of Treatment Not on file documented as of this encounter Visit Diagnoses Not on filedocumented in this encounter Care Teams Fuse Maker Relationship Specialty Start Date End Date Peg Garcia MD PCP - General Internal Medicine 06/21/21 documented as of this encounter
--- OUTSIDE RECORDS SUMMARY | 2025-07-17 14:49 | XMS_ITS | Encounter Summary ---
Author Organization [facility] Address [address] [place] [address] Care Team Providers Care Municipal [address] Magistrate Name Role Phone Peg Garcia MD Primary Care Provider [phone] Reason for Visit * Reason Onset Date Comments refill request 03/08/2022 Encounter Details Date Type Department Care Team Description 03/08/2022 Refill Internal Medicine - [address], [address] [place], [place] [id number] Peg Garcia MD [address] [place] [phone] refill request Social History Tobacco Use [...] encounter Miscellaneous Notes * Telephone Encounter - Taqueria Rivas M.A. - 03/08/2022 9:25 AM EDT Lab Results Component Value Date CHOL 238 10/25/2021 LDL 118 10/25/2021 HDL 35 10/25/2021 TRIG 426 10/25/2021 SGOT 16 10/25/2021 SGPT 26 10/25/2021 Rx pended fwd to covering * Telephone Encounter - Elo Borges - 03/08/2022 9:22 AM EDT SONIA-10/19/2021 NOV- No future appt scheduled documented in this encounter Plan of Treatment Not on file documented as of this encounter Visit Diagnoses Not on filedocumented in this encounter Care Teams [address] Magistrate Relationship Specialty Start Date End Date Peg Garcia MD PCP - General Internal Medicine 06/21/21 documented as of this encounter
--- OUTSIDE RECORDS SUMMARY | 2025-07-17 14:49 | XMS_ITS | Encounter Summary ---
Author Organization [facility] Address [address] [place] [address] Care Team Providers Care Slab Polisher Name Role Phone Rossana Washington MD Primary Care Provider Un available Peg Garcia MD Primary Care Provider [phone] Peg Garcia MD Primary Care Provider [phone] Encounter Details Date Type Department Care Team Description 09/13/2018 Release of Information Medical Records [address] [place] [id number] Abstract, Provider Social History Tobacco Use Types [...] on filedocumented in this encounter Care Teams Slab Polisher Relationship Specialty Start Date End Date Rossana Washnigton MD PCP - General Internal Medicine 01/24/16 Peg Garcia MD PCP - General Internal Medicine 07/01/19 06/20/21 Peg Garcia MD PCP - General Internal Medicine 06/21/21 documented as of this encounter
--- OUTSIDE RECORDS SUMMARY | 2025-07-17 14:49 | XMS_ITS | Encounter Summary ---
Author Organization [facility] Address [address] [place] [address] Care Team Providers Care Ground Crewman Name Role Phone Rossana [place] MD Primary Care Provider Un available Peg Garcia MD Primary Care Provider [phone] Peg Garcia MD Primary Care Provider [phone] Encounter Details Date Type Department Care Team Description 09/06/2016 Release of Information Medical Records [address] [place] [id number] Abstract, Provider Social History Tobacco Use Types [...] on filedocumented in this encounter Care Teams Ground Crewman Relationship Specialty Start Date End Date Rossana Washington MD PCP - General Internal Medicine 01/24/16 Peg Garcia MD PCP - General Internal Medicine 07/01/19 06/20/21 Peg Garcia MD PCP - General Internal Medicine 06/21/21 documented as of this encounter
== END 2025-07-17 13:27 | disposition home or self-care (01) ==
LOC: HO.HSM 12:55
PROVIDERS: PCP Internal Medicine; Visit Provider Nurse Practitioner
DX: G43.009 Migraine without aura, not intractable, without status migrainosus (principal)
CPT/HCPCS: 99214

== ENCOUNTER → 2025-07-17 12:54 | Outpatient (BNVA) | payer OTHER, SELFPAY | PROVIDERS: PCP Internal Medicine; Visit Provider Nurse Practitioner | DX: G43.009 Migraine without aura, not intractable, without status migrainosus (principal); G89.29 Other chronic pain | CPT/HCPCS: 99212 ==

== ENCOUNTER 2025-08-28 13:00 | Outpatient (AMB) | payer OTHER, SELFPAY ==
--- NOTE | 2025-08-28 13:09 | MHC.OFFVIS ---
Vital Signs 08/28/25 13:10 Height 5 ft 5 in Weight 180 lb BMI 30.0 BP 142/80 H Blood Pressure Location Rt brachial Position Sitting Respiration 16 Pulse 72 Pulse Source Pulse Oximeter Pulse Oximetry (%) 97 Oxygen Delivery Method Room Air Intake Visit Reasons: 6 wk follow up Air Route Controller Required: No Allergies morphine Allergy (Unknown, Verified 08/28/25 13:11) Unknown HPI Comments Details: Milagros is a 60-year-old female patient with a past medical history of depression, diabetes, GERD, hyperlipidemia, and headache here today for a follow-up visit. At the time of her last visit, she had reported some improvement with propranolol 10 mg at bedtime for headaches and she was using Tylenol for acute therapy as needed. She was having daily headaches at time of last visit to the right side of her head typically to the temporal and retro-orbital area and sometimes occipital areas described as a strong pain associated with blurry vision of her right eye. She also had some nausea and light sensitivity. She had seen some improvement with the propranolol and therefore we decided to increase her propranolol from 10 mg nightly to 20 mg nightly and add riboflavin. She had already been taking magnesium 500 mg nightly. She tells me today, after increasing the propranolol from 10 mg to 20 mg and adding the riboflavin as well as continuation of the magnesium, she feels that her headaches are much better. She is now experiencing headaches 3 days per week only lasting 1-2 hours at a time. She also got a new pillow for her bed and feels that the new pillow has been helpful. Overall, she is happy with her headache control at this time. Meds tried for headaches: Citaloprim Propranalol Gabapentin Topiramate Prior workup: Routine EEG [place] Oct 2024: [place] (per last office note) CT brain WO at [place] in 2020: [place] (per last office note) MRI brain WWO at [place] in February 2021: L lateral ventricle area lesion, ?demylination, milder on other side 07/2024 labs at [facility]: Sed rate 4 [facility] Medical History (Updated 08/28/25 @ 13:33 by Karol Pal CNP) MCI (mild cognitive impairment) Demyelinating changes in brain Brain lesion Depression with anxiety Diabetes mellitus Hypertension Migraine without aura Review of Systems Const All systems reviewed & are unremarkable except as noted in HPI and below Physical Exam Vital Signs: Last Vital Signs Pulse 72 08/28/25 13:10 Resp 16 08/28/25 13:10 BP 142/80 H 08/28/25 13:10 Pulse Ox 97 08/28/25 13:10 Oxygen Delivery Method Room Air 08/28/25 13:10 BMI result Body Mass Index 30.0 Const General: cooperative, healthy appearing, comfortable and no acute distress Nutritional Appearance: well nourished Orientation/consciousness: patient oriented x3 Limitations: no limitations HEENT Head: Yes normal to inspection and Yes normocephalic Eyes General: appearance normal, both eyes and all related structures Visual Fontaine: normal visual fontaine by confrontation Alignment and Position: alignment normal Periorbital: periorbital findings normal Eyelids: Yes eyelids normal Conjunctivae: conjunctivae normal Sclerae: sclerae normal Neuro General: patient oriented x3 and deep tendon reflexes 2+ bilaterally Cranial nerves: Yes CN's II-XII intact bilaterally and Yes Facial sensation intact/muscles of mastication intact Cognition (Neuro): normal cognition Gait exam (Neuro): Normal gait present Motor exam (neuro): 5/5 motor strength present throughout and no tremor noted Sensory Exam: double simultaneous stimulation for sensation normal Romberg Test: Negative Pupils: Normal pupillary reactivity/response: bilateral Psych Appearance: grossly normal Mental Status: mental status grossly normal Speech and movement: Normal speech and movement present and Clear speech present Affect: normal affect Attitude: cooperative Thought process: Normal thought process present Thought content: Normal thought content present Insight: Good insight present (Psych) Judgement: Good judgement present (Psych) Assessment & Plan Assessment & Plan (1) Migraine without aura and without status migrainosus, not intractable: Code(s): G43.009 - Migraine without aura, not intractable, without status migrainosus Category: Medical Plan Milagros is a 60-year-old female patient with a past medical history of depression, diabetes, GERD, hyperlipidemia, and headache here today for a follow-up visit. She feels that her headaches are well-controlled at this time going from daily headaches now down to 3 days per week with headaches only lasting 1-2 hours at a time. We did increase her propranolol last visit which we will continue. She will also continue magnesium and riboflavin supplementation. Of note, she also did get herself a new pillow which she feels has been helpful. Overall, she is happy with her headaches at this time and will continue same therapy and follow up in 6 months. If headaches do end up escalating, we can consider once monthly CGRP therapy. -continue propranolol 20 mg nightly -continue magnesium 500 mg nightly -continue riboflavin 400 mg daily -follow up in 6 months or sooner if needed Medications: Changed From propranolol 20 mg (2 x 10 mg) PO DAILY 30 days 60 tabs 5RF To propranolol 20 mg (2 x 10 mg) PO DAILY 180 tabs 3RF 90 days Coding Level of Care Code Est Pt Level 3 (22172) Diagnoses Migraine without aura and without status migrainosus, not intractable G43.009
[2025-08-28 13:10] VITALS: BP 142/80; PULSE 72; RESP 16; O2SAT 97
--- OUTSIDE RECORDS SUMMARY | 2025-08-28 16:58 | XMS_ITS | Clinical Summary ---
Author Organization [facility] Prior to 02/21/[address] [place] [address] Care Team Providers Care Proj Engineer Name Role Phone Peg Garcia MD Primary Care Provider [phone] Allergies No known active allergies Medications Medication [...] age to complete this topic Care Teams Proj Engineer Relationship Specialty Start Date End Date Peg Garcia MD [address] [facility] [address] [place] [id number] PCP - General Internal Medicine 01/10/24
--- OUTSIDE RECORDS SUMMARY | 2025-08-28 16:58 | XMS_ITS | Clinical Summary ---
Author Organization [address] Address [address] [place] [address] Phone Care Team Providers Care Open End Spinning Operator Name Role Phone Christiano Garcia MD Primary Care Provider [phone] Allergies Active Allergy Reactions Criticality Noted Date Comments Morphine Rash,Headache 02/11/2016 Medications blood-glucose meter kit 2 (two) times a day. 2 Active citalopram (CeleXA) 40 mg tablet Take 1 tablet (40 mg total) by mouth 1 (one) time each day. 3 Active fluticasone propionate (Flonase Allergy Relief) 50 mcg/actuation nasal spray 1 sprays, Nares, Both, Daily, in each nostril; Belarusian, # 1 each, 3 Refills, Maintenance, 01/06/16 9:01:37, 1 sprays Nares, Both Daily,Instr:in each nostril; Belarusian 6 Active tiZANidine (ZANAFLEX) 4 mg tablet Take 1 tablet (4 mg total) by mouth every 6 (six) hours if needed for muscle spasms. 30 tablet 3 4 Active Additional Information Patient not taking.Reported on 07/09/2025 blood sugar diagnostic (FreeStyle Lite Strips) test strip 100 each by Other route 2 (two) times a day. 100 each 2 5 Active freestyle (FreeStyle Lancets) 28 gauge lancets by Other route 2 (two) times a day. 90 each 3 5 Active melatonin-lemon balm leaf extr 10-1 mg tablet Take 1 tablet by mouth. Active tiZANidine (ZANAFLEX) 4 mg tablet Take 1 tablet (4 mg total) by mouth 3 (three) times a day if needed for muscle spasms. Active senna-docusate (PERICOLACE) 8.6-50 mg per tablet Take 1 tablet by mouth 1 (one) time each day. 30 each 11 5 12/16/19 26 Active cholecalciferol (Vitamin D3) 50 mcg (2,000 unit) tablet Take 1 tablet (2,000 Units total) by mouth 1 (one) time each day. 90 tablet 2 5 Active cholecalciferol (Vitamin D3) 50 mcg (2,000 unit) tablet Take 1 tablet (2,000 Units total) by mouth 1 (one) time each day. 90 tablet 2 5 Active Additional Information Patient not taking.Reported on 07/09/2025 metFORMIN (GLUCOPHAGE) 850 mg tablet Take 1 tablet (850 mg total) by mouth 2 (two) times a day with meals. 180 each 3 5 Active glipiZIDE (GLUCOTROL XL) 5 mg 24 hr tablet TAKE 1 TABLET BY MOUTH TWICE DAILY 180 tablet 1 5 Active Additional Information Patient not taking.Reported on 07/09/2025 gabapentin (NEURONTIN) 300 mg capsule Take 1 capsule (300 mg total) by mouth. Active meclizine (ANTIVERT) 25 mg tablet Take 1 tablet (25 mg total) by mouth 2 (two) times a day if needed for dizziness. 30 tablet 5 Active Additional Information Patient not taking.Reported on 07/09/2025 metFORMIN (GLUCOPHAGE) 1,000 mg tablet Take 1 tablet (1,000 mg total) by mouth 2 (two) times a day with meals. 180 tablet 2 5 Active pantoprazole (PROTONIX) 40 mg EC tablet TAKE 1 TABLET(40 MG) BY MOUTH 1 TIME EACH DAY. DO NOT CRUSH, CHEW, OR SPLIT 30 tablet 3 5 Active Additional Information Patient not taking.Reported on 07/09/2025 acetaminophen (TYLENOL) 500 mg tablet TAKE 1 TABLET BY MOUTH EVERY 6 HOURS NEEDED FOR PAIN 60 tablet 1 5 Active losartan (COZAAR) 100 mg tablet TAKE 1 TABLET BY MOUTH DAILY 90 tablet 2 5 Active valACYclovir (VALTREX) 1 gram tablet TAKE 2 TABLETS BY MOUTH AT ONSET OF SYMPTOMS AND 12 HOUR LATER 5 Active triamcinolone (KENALOG) 0.1 % lotion APPLY TOPICALLY TO SCALP TWICE DAILY NEEDED FOR FLARES AND DECREASE SYMPTOMS IMPROVE 5 Active traZODone (DESYREL) 50 mg tablet Take 1 tablet (50 mg total) by mouth. at bedtime 5 Active topiramate (TOPAMAX) 25 mg tablet 4 Active SUMAtriptan (Imitrex) 25 mg tablet Take 1 tablet (25 mg total) by mouth. 5 Active propranoloL (INDERAL) 10 mg tablet Take 1 tablet (10 mg total) by mouth 1 (one) time each day. 5 Active pregabalin (LYRICA) 150 mg capsule TAKE 1 CAPSULE BY MOUTH EVERY DAY AT BEDTIME FOR PAIN 5 Active pravastatin (PRAVACHOL) 80 mg tablet Take 1 tablet (80 mg total) by mouth. 6 Active oxyCODONE (ROXICODONE) 5 mg immediate release tablet TAKE 1 TABLET BY MOUTH EVERY 4 TO 6 HOURS FOR 7 DAYS DIRECTED 5 Active omeprazole (PriLOSEC) [address] capsule Take 1 capsule (20 mg total) by mouth 2 (two) times a day. 4 Active naproxen (NAPROSYN) 500 mg tablet Take 1 tablet (500 mg total) by mouth 2 (two) times a day with meals. 4 Active nabumetone (RELAFEN) 500 mg tablet Take 1 tablet (500 mg total) by mouth. 6 Active lisinopril-hydr oCHLOROthiazide (PRINZIDE,ZESTO RETIC) 20-12.5 mg per tablet Take 1 tablet by mouth. 6 Active ketoconazole (NIZORAL) 2 % shampoo APPLY TOPICALLY TO THE SCALP 2 TIMES EVERY WEEK. LEAVE ON 5 MINUTES THEN WASH OFF 5 Active fluocinonide (LIDEX) 0.05 % cream apply cream topically twice daily 5 Active cyclobenzaprine (FLEXERIL) 10 mg tablet Take 1 tablet (10 mg total) by mouth 2 (two) times a day. for 14 days 5 Active clotrimazole-be tamethasone (LOTRISONE) 1-0.05 % cream APPLY SMALL AMOUNT TOPICALLY TWICE DAILY 5 Active cetirizine (ZyrTEC) 10 mg tablet Take 1 tablet (10 mg total) by mouth 1 (one) time each day. 4 Active ammonium lactate (AMLACTIN) 12 % cream 5 Active amLODIPine (NORVASC) 5 mg tablet Take 1 tablet (5 mg total) by mouth 1 (one) time each day. 2 Active atorvastatin (LIPITOR) 40 mg tablet TAKE 1 TABLET(40 MG) BY MOUTH 1 TIME EACH DAY 90 tablet 1 5 Active Active Problems Problem Noted Date Diagnosed Date [...] of adhesions and revision of abdominal scar. ASSET RECOVERY SPECIALIST: ____ and Gely Diamond D.O. ANESTHETIC: General. COMPLICATIONS: None. Internal hemorrhoids 07/03/2025 Overview (07/03/2025): Per colonscopy 02/2013 Positive PPD 07/03/2025 Postprandial epigastric pain 07/03/2025 Type 2 diabetes, HbA1c goal < 7% (CMS/HCC V24, C MS/HCC V28) 07/03/2025 Trochanteric bursitis of left hip 07/03/2025 Spinal stenosis, lumbar riccardo on, with neurogenic claudication 12/03/2024 Chronic gastritis 08/11/2024 Shoulder pain, right 08/25/2021 Obesity (BMI 30.0-34.9) 02/26/2018 Sickle cell anemia ([facility] V24, [facility] V28) Type 2 diabetes mellitus wit h diabetic neuropathy, without long-term current use of insulin ([facility] V24, [facility] V28) 08/08/2016 Hyperlipidemia 02/14/2016 Depression 02/11/2016 Overview (08/11/2024): F/u [address] Insomnia 02/11/2016 HTN (hypertension) 02/11/2016 Low back pain radiating to left leg 02/11/2016 Encounters Date Type Department Care Team Description 08/13/2025 Telephone Internal Medicine - [facility] [address] [phone] Christiano Garcia MD 07/09/2025 2:20 PM EDT Office Visit Gastroenterology - [facility] [address] [phone] Nesha Petersen PA Gastroesophageal reflux disease, unspecified whether esophagitis present (Primary Dx); Diabetic gastroparesis ([facility] V24, [facility] V28) 07/04/2025 Results Follow-Up Gastroenterology [address] [phone] Nesha Petersen PA 06/16/2025 7:58 AM EDT - 06/16/2025 11:59 PM EDT Hospital Encounter [facility] Nuclear Medicine [address] [place] [phone] Hepatitis B infection without delta agent without hepatic coma, unspecified chronicity; Gastroesophageal reflux disease, unspecified whether esophagitis present; History of throat cancer Discharge Disposition: Home or Self Care from Last 3 Months Immunizations Immunization Administration [...] neuropathy, without long-term current use of insulin ([facility] V24, [facility] V28) 08/08/2016 DX:Type 2 diabetes mellitus with diabetic neuropathy, without long-term current use of insulin (HCC) Sickle cell anemia ([facility] V24, [facility] V28) 04/06/2017 DX:Sickle cell anemia (HCC) Cancer ([facility] V24, [facility] V28[facility] Throat cancer ([facility] V24, [facility] V28) Family History Relation Name Status Comments [...] PM EST Office Visit Internal Medicine - [facility] 175 [facility] 200 [place] [phone] Christiano Garcia MD [address] [place] [phone] 02/09/2026 2:00 PM EDT Office Visit Gastroenterology - [address] [facility] 299 [facility] [address] [place] [phone] Nesha Petersen PA 299 [facility] [address] [place] [address] Health Maintenance Due Date Last Done Comments [...] this topic Medical Devices Implanted Type Area Rfid Developer Device Identifier Shelf Expiration Date Model / Serial / Lot Screw Marcin Polyaxial Extended Tab 6.5x45mm - Sn/A - [id number] Implanted:Qty : 4 on 12/03/2024 by Reymundo Thompson MD at [facility] Internal and External Fixation N/A: Spine Lumbar [employer] SP[employer]- K2M [id number] / N/A / N/A Bone Graft Spine Infuse Sm - Sn/A - [id number] Implanted:Qty : 1 on 12/03/2024 by Reymundo Thompson MD at [facility] [employer]ics BMP N/A: Spine Lumbar [employer] SOF[employer]ANEK 07/25/2025 [id number] / N/A / [id number] Putty Bone Graft 2.5ml Peptide Enhanced - Sn/A - [id number] Implanted:Qty : 1 on 12/03/2024 by Reymundo Thompson MD at [facility] [employer] N/A: Spine Lumbar [employer] 04/23/2027 700-025 / N/A / [id number] Putty Bone Graft 2.5ml Peptide Enhanced - Sn/A - [id number] Implanted:Qty : 1 on 12/03/2024 by Reymundo Thompson MD at [facility] [employer] N/A: Spine Lumbar [employer] 12/22/2026 700-025 / N/A / [id number] Cage Spinal [id number] [address]deg [address] Lmbr Titan Lrdtc Lf - Sn/A - [id number] Implanted:Qty : 1 on 12/03/2024 by Reymundo Thompson MD at [facility] Spinal Hardware N/A: Spine Lumbar [employer] 01/15/2028 [id number] / N/A / [id number] Screw Set [place] - Sn/A - [id number] Implanted:Qty : 1 on 12/03/2024 by Reymundo Thompson MD at [facility] Spinal Hardware N/A: Spine Lumbar [employer] SPINE- K2M [id number] / N/A / N/A Saw Contr Blt/Hex 5.5x40mm - Sn/A - [id number] Implanted:Qty : 1 on 12/03/2024 by Reymundo Thompson MD at [facility] Spinal Hardware N/A: Spine Lumbar [employer] SPINE- K2M [id number] / N/A / N/A Saw Contr Blt/Hex 5.5x45mm - Sn/A - [id number] Implanted:Qty : 1 on 12/03/2024 by Reymundo Thompson MD at [facility] Spinal Hardware N/A: Spine Lumbar V[employer]IE SPINE- [...] neuropathy, without long-term current use of insulin ([facility] V24, [facility] V28) MICROALBUMIN CREATININE URINE RATIO Routine 12/24/2024 8:23 AM EDT Primary hypertension Type 2 diabetes mellitus with diabetic neuropathy, without long-term current use of insulin ([facility] V24, [facility] V28) Mixed hyperlipidemia Sickle cell disease with crisis ([facility] V24, [facility] V28) Adult general medical examination COMPREHENSIVE METABOLIC PANEL Routine 12/24/2024 8:16 AM EDT Primary hypertension Type 2 diabetes mellitus with diabetic neuropathy, without long-term current use of insulin ([facility] V24, CMS/HCC V28) Mixed hyperlipidemia Sickle cell disease with crisis (CMS/HCC V24, CMS/HCC V28) LIPID PANEL WITH REFLEX TO DIRECT LDL Routine 12/24/2024 8:16 AM EDT Primary hypertension Type 2 diabetes mellitus with diabetic neuropathy, without long-term current use of insulin (CMS/HCC V24, CMS/HCC V28) Mixed hyperlipidemia Sickle cell disease with crisis (CMS/HCC V24, CMS/HCC V28) ABUNDIO SCREENING DIGITAL Routine 07/02/2024 8:34 AM EDT Encounter for screening mammogram for malignant neoplasm of breast HEPATITIS C SCREENING Routine 02/20/2024 COLONOSCOPY Routine 11/27/2019 from Last 3 Months or Most Recently Relevant to Health Maintenance Results * External Diabetic Retina Eye Exam Report (07/01/2025) Anatomical Region Laterality Modality Ultrasound us Provider [facility] IMG US PROCEDURES Final Result * NM Gastric Emptying Study (06/23/2025 12:43 PM EDT) Anatomical Region Laterality Modality Body Nuclear Medicine 06/24/2025 4:57 PM EDT Impressions 06/24/2025 4:59 PM EDT Slightly delayed solid material gastric emptying. Telegarry SAVAGE ([id number]) -------- FINAL REPORT -------- Dictated By: Lindsay Cross Dictated Date: 06/24/2025 16:57 ET Assigned Physician: Lindsay Cross Reviewed and Electronically Signed By: Lindsay Cross Signed Date: 06/24/2025 16:59 ET Workstation ID: [id number] Transcribed By: Self Edit Transcribed Date: 06/24/2025 [...] delayed solid material gastric emptying. Jimy SAVAGE ([id number]) -------- FINAL REPORT -------- Dictated By: Lindsay Cross Dictated Date: 06/24/2025 16:57 ET Assigned Physician: Lindsay Cross Reviewed and Electronically Signed By: Lindsay Cross Signed Date: 06/24/2025 16:59 ET Workstation ID: [id number] Transcribed By: Self Edit Transcribed Date: 06/24/2025 16:57 ET Nesha SAVAGE [facility] PROCEDURES Final Resul t * (ABNORMAL) Hemoglobin A1c (06/05/2025 8:55 AM EDT) Hemoglobin A1C 7.8(H) <6.5 % LAB CHEMISTRY METHOD 06/05/2025 12:41 PM EDT [facility] Mean Bld Glu Estim. 177 mg/dL LAB CHEMISTRY METHOD 06/05/2025 12:41 PM EDT [facility] Blood Venous blood specimen / Unknown Venipuncture / Unknown 06/05/2025 8:55 AM EDT 06/05/2025 8:55 AM EDT us Christiano Garcia MD LAB BLOOD ORDERABLES Final Res ult Performing Organization Address City/[facility]/ZIP Co de Phone Number [facility] [address] [place] [address], [place] [phone] * (ABNORMAL) Microalbumin creatinine urine ratio (12/24/2024 8:23 AM EDT) Creatinine, Urine 148.0 mg/dL LAB CHEMISTRY METHOD 12/24/2024 9:52 AM EDT [facility] Microalb, Ur 29.5(H) 0.0 - 29.0 mg/L LAB CHEMISTRY METHOD 12/24/2024 9:52 AM EDT [facility] Microalb/Crea t Ratio 20 <30 mg/g creat LAB CHEMISTRY METHOD 12/24/2024 9:52 AM EDT [facility] Urine Urine specimen obtained by clean catch procedure / Unknown Non-blood Collection / Unknown 12/24/2024 8:23 AM EDT 12/24/2024 9:08 AM EDT us Christiano Garcia MD LAB URINE ORDERABLES Final Res ult Performing Organization Address [facility]/ZIP Co de Phone Number [facility] [address] [place] [address], [place] [phone] * (ABNORMAL) Lipid panel with reflex to direct LDL (12/24/2024 8:16 AM EDT) Cholesterol 157 0 - 200 mg/dL LAB CHEMISTRY METHOD 12/24/2024 9:51 AM EDT [facility] Triglycerides 361(H) 0 - 150 mg/dL LAB CHEMISTRY METHOD 12/24/2024 9:51 AM EDT [facility] HDL 36(L) >=40 mg/dL LAB CHEMISTRY METHOD 12/24/2024 9:51 AM EDT [facility] LDL Calculated 49 0 - 100 mg/dL LAB CHEMISTRY METHOD 12/24/2024 9:51 AM EDT [facility] VLDL Cholesterol Marcell 72.2 mg/dL LAB CHEMISTRY METHOD 12/24/2024 9:51 AM [facility] Non HDL Chol. (LDL+VLDL) 121 <145 mg/dL LAB CHEMISTRY METHOD 12/24/2024 9:51 AM T [facility] Chol/HDL Ratio 4.4 0.0 - 4.4 LAB CHEMISTRY METHOD 12/24/2024 9:51 AM [facility] Blood Venous blood specimen / Unknown Venipuncture / Unknown 12/24/2024 8:16 AM EDT 12/24/2024 9:01 AM EDT us Christiano Garcia MD LAB BLOOD ORDERABLES Final Res ult [facility] [address] [place] [address], [place] [phone] * (ABNORMAL) Comprehensive metabolic panel (12/24/2024 8:16 AM EDT) Sodium 139 133 - 145 mmol/L LAB CHEMISTRY METHOD 12/24/2024 9:51 AM [facility] Potassium 4.3 3.5 - 5.5 mmol/L LAB CHEMISTRY METHOD 12/24/2024 9:51 AM [facility] Chloride 102 96 - 110 mmol/L LAB CHEMISTRY METHOD 12/24/2024 9:51 AM [facility] CO2 32 21 - 32 mmol/L LAB CHEMISTRY METHOD 12/24/2024 9:51 AM [facility] Anion Gap 5 3 - 11 LAB CHEMISTRY METHOD 12/24/2024 9:51 AM [facility] Glucose 171(H) 70 - 100 mg/dL LAB CHEMISTRY METHOD 12/24/2024 9:51 AM [facility] BUN 9 5 - 25 mg/dL LAB CHEMISTRY METHOD 12/24/2024 9:51 AM [facility] Creatinine 0.55 0.50 - 1.10 mg/dL LAB CHEMISTRY METHOD 12/24/2024 9:51 AM [facility] eGFR 105 >=60 mL/min/1. 73m2 LAB CHEMISTRY METHOD 12/24/2024 9:51 AM [facility] Comment:Calculation based on the Chronic Kidney Disease Epidemiology Collaboration (CKD-EPI) equation refit without adjustment for race. BUN/Creatinine Ratio 16.4 LAB CHEMISTRY METHOD 12/24/2024 9:51 AM [facility] Calcium 9.8 8.5 - 10.5 mg/dL LAB CHEMISTRY METHOD 12/24/2024 9:51 AM [facility] AST (SGOT) 12 10 - 42 unit/L LAB CHEMISTRY METHOD 12/24/2024 9:51 AM [facility] ALT (SGPT) 22 10 - 60 unit/L LAB CHEMISTRY METHOD 12/24/2024 9:51 AM [facility] Alkaline Phosphatase 100 42 - 121 unit/L LAB CHEMISTRY METHOD 12/24/2024 9:51 AM [facility] Total Protein 7.0 6.0 - 8.0 g/dL LAB CHEMISTRY METHOD 12/24/2024 9:51 AM [facility] Albumin 3.4 3.2 - 5.0 g/dL LAB CHEMISTRY METHOD 12/24/2024 9:51 AM [facility] Total Bilirubin 0.4 0.0 - 1.4 mg/dL LAB CHEMISTRY METHOD 12/24/2024 9:51 AM [facility] Blood Venous blood specimen / Unknown Venipuncture / Unknown 12/24/2024 8:16 AM EDT 12/24/2024 9:01 AM EDT us Christiano Garcia MD LAB BLOOD ORDERABLES Final Res ult [facility] [address] [place] [address], * ABUNDIO SCREENING DIGITAL (07/02/2024 8:34 AM EDT) Anatomical Region Laterality Modality Mammography 07/01/2024 3:21 PM EDT Narrative 07/02/2024 8:34 AM EDT [facility] Diagnostic Imaging Department [address] [place] [address] Patient: MARGARITA POSEY /Age/Sex: 1965 - 59 - F Unit#: [id number] Location/Status: [facility] Mnemonic/Ordering Site: [facility] Ordering Physician: CHRISTIANO GARCIA MD [facility] Screening Digital - 07/01/24 - 1603 Report Status:Signed EXAM: [facility] Screening Digital EXAM DATE AND TIME: 07/01/2024 4:04 PM HISTORY: Screening. Family history of breast carcinoma including sister at age 49 and 2 maternal aunts. COMPARISON: 06/30/23, 02/07/21, 08/15/19 TECHNIQUE: Bilateral digital breast tomosynthesis was performed in the CC and MLO projections. Computer aided detection with [employer] 3D 3.1 was employed. TISSUE DENSITY: b. [...] Mammogram performed at [facility] [address] [place] [address] Dictating Physician: LINDSAY CROSS MD Electronically Signed by: LINDSAY CROSS MD Dic Date/Time: 07/02/24833 Sign date/Time: 07/02/24833 Procedure Note Lindsay Cross MD - 07/22/2024 [facility] Diagnostic Imaging Department [address] [place] [address] Patient: MARGARITA POSEY /Age/Sex: 1965 - 59 - F Unit#: [id number] Location/Status: [facility] CLI Mnemonic/Ordering Site: [facility] Ordering Physician: CHRISTIANO GARCIA MD [facility] Screening Digital - 07/01/24 - 3521 Report Status:Signed EXAM: [facility] Screening Digital EXAM DATE AND TIME: 07/01/2024 4:04 PM HISTORY: Screening. Family history of breast carcinoma including sisterat age 49 and 2 maternal aunts. COMPARISON: 06/30/23, 02/07/21, 08/15/19 TECHNIQUE: Bilateral digital breast tomosynthesis was performed in the CCand MLO projections. Computer aided detection with i[employer] Sun[employer]s 3D 3.1was employed. TISSUE DENSITY: b. There [...] Mammogram performed at [facility] [place] [address] Dictating Physician: LINDSAY CROSS MD Electronically Signed by: LINDSAY CROSS MD Dic Date/Time: 07/02/24833 Sign date/Time: 07/02/24833 Christiano Garcia MD IMG BI PROCEDURES Final Result * Hepatitis C Screening (02/20/2024) Hepatitis C Screening abstracted Historical [employer] [facility] Final Result * Colonoscopy (11/27/2019) Colonoscopy No interpretation , abstracted Anatomical Region Laterality Modality Other Historical [employer] [facility] [employer] Final Result from Last 3 Months or Most Recently Relevant to Health Maintenance Insurance [employer] MEDICARE Member Subscriber Plan / Payer (Ef fective 2019-Present) Name:MARGARITA POSEY Relation to Subscriber:Self Name:Margarita Posey Payer ID:[id number] Group ID:[id number] Type:Not on file Address: [place] [address] [address] [phone] Advance Directives * Full Code - Default [...] currently active code status orders. Care Teams Open End Spinning Operator Relationship Specialty Start Date End Date Christiano Garcia MD [address] [place] [phone] PCP - General Internal Medicine 07/01/19
--- OUTSIDE RECORDS SUMMARY | 2025-08-28 16:58 | XMS_ITS | Encounter Summary ---
Author Organization [facility] Address [address] [place] [address] Care Team Providers Care Ophthalmic Pathologist Name Role Phone Peg Garcia MD Primary Care Provider [phone] Encounter Details Date Type Department Care Team ([facility] Contact Info) Description 07/04/2025 Results Follow-Up Gastroenterology - [place] 175 [facility] 175 [facility] 200 [place] [phone] Nesha Petersen PA 299 [facility] [address] [place] [address] Social History Tobacco Use Types Packs/Day Years [...] PM EST Office Visit Internal Medicine - [place] [address] [facility] [address] [place] [phone] Peg Garcia MD [address] [place] [phone] 02/09/2026 2:00 PM EDT Office Visit Gastroenterology - [address] [place] [address] [facility] [address] [place] [phone] Nesha Petersen PA [address] [facility] [address] [place] [address] documented as of this encounter Visit Diagnoses Not on filedocumented in this encounter Care Teams Ophthalmic Pathologist Relationship Specialty Start Date End Date Peg Garcia MD [address] [place] [address] [place] [phone] PCP - General Internal Medicine 07/01/19 documented as of this encounter
--- OUTSIDE RECORDS SUMMARY | 2025-08-28 16:58 | XMS_ITS | Encounter Summary ---
Author Organization [facility] Address [address] [place] [address] Care Team Providers Care Internal [employer]ion [employer] Subassembler Name Role Phone Peg Garcia MD Primary Care Provider [phone] Reason for Visit * Reason Onset Date Comments Jose - Records request 08/13/2025 Encounter Details Date Type Department Care Team ([facility] st Contact Info) Description 08/13/2025 Telephone Internal Medicine [facility] [address] [place] [phone] Peg Garcia MD [address] [place] [phone] Social History Tobacco Use Types Packs/Day Years [...] as of this encounter Progress Notes * Fei Long [place] - 08/14/2025 9:45 AM EST Faxed requested office notes to number provided. * Emilie Hansen - 08/13/2025 4:00 PM EST [facility] called requesting pt's SONIA clinical notes (04/27/25) and PE clinical notes (12/23/24) to be faxed to their office. Fax to # [phone]. documented in this encounter Plan of Treatment Upcoming Encounters Date Type Department Care Team (Late st Contact Info) Description 08/31/2025 2:30 PM EST Office Visit Internal Medicine - [place] [address] [place] [phone] Peg Garcia MD [address] [place] [phone] 02/09/2026 2:00 PM EDT Office Visit Gastroenterology - [address] [place] [phone] Nesha Petersen PA [address] [place] [address] documented as of this encounter Visit Diagnoses Not on filedocumented in this encounter Care Teams Internal [employer]ion Engine Subassembler Relationship Specialty Start Date End Date Peg Garcia MD [address] [place] [phone] PCP - General Internal Medicine 07/01/19 documented as of this encounter
== END 2025-08-28 13:30 | disposition home or self-care (01) ==
LOC: HO.HSM 13:01
PROVIDERS: PCP Internal Medicine; Visit Provider Nurse Practitioner
DX: G43.009 Migraine without aura, not intractable, without status migrainosus (principal)
CPT/HCPCS: 99213

== ENCOUNTER → 2025-08-28 13:00 | Outpatient (BNVA) | payer OTHER, SELFPAY | PROVIDERS: PCP Internal Medicine; Visit Provider Nurse Practitioner | DX: G43.009 Migraine without aura, not intractable, without status migrainosus (principal); Z87.891 Personal history of nicotine dependence | CPT/HCPCS: 99212 ==